=== PATIENT | male | born 1950 | race African-American/Black ===

== ENCOUNTER 2019-11-19 06:51 | Day surgery (SDC) | payer MEDICARE ==
[2019-11-18 12:53] VITALS: BMI 38.0
[~2019-11-19 06:51] MED LIST: Prevnar 13-Val Conj/PF 0.5 ML SYRINGE IM ONE
--- NOTE | 2019-11-19 08:43 | RAD ---
RADIOGRAPH LUMBAR SPINE 3 VIEWS: DATE: 11/19/2019 HISTORY: 69-year-old male with lumbar radiculopathy and low back pain. COMPARISON: 01/19/2011 TECHNIQUE: Lateral standing views in flexion, extension, and neutral. FINDINGS: Along with the AP associate director qa radiograph obtained today for the myelogram, there is demonstration of 5 lumb ar-type vertebrae. No high-grade scoliosis. Chronic minimal anterior wedging of T12 and L1, are unchanged. L1-2: Disc space maintained. L2-3: Interval development of mild disc space narrowing. L3-4: New finding of slight retrolisthesis of L3 on L4, with mild disc space narrowing there. L4-5: Again noted is the grade 1 anterolisthesis of L4 on L5 due to facet DJD. This becomes worse dur ing flexion. Mild to moderate disc space narrowing. L5-S1: No high-grade disc space narrowing.. IMPRESSION: 1 stable grade 1 spondylolisthesis due to facet osteoarthrosis, at L4-5.
--- NOTE | 2019-11-19 08:44 | RAD ---
3 LATERAL PROJECTIONS OF THE CERVICAL SPINE IN NEUTRAL, EXTENSION AND FLEXION POSITIONIN11/19/2019 12:00 AM CLINICAL HISTORY: Cervical radiculopathy COMPARISON: CT cervical spine dated November 19, 2010 Bones: There is stable ankylosis of the C4-5 intervertebral level. There is a stable ACDF spanning C3 -C7. The very distal aspect of the ACDF plate is not well seen. Cervical thoracic junction is not well seen. Intervertebral disc spaces and facet complexes: Advanced disc degenerative disease at C2-C3 is simila r appearing. Spinal alignment: No abnormal translational motion is demonstrated. The cervical thoracic junction wa s not well seen. There is mild anterior translation of C7 on T1 on the comparison exam. Prevertebral soft tissues: Normal. Lateral masses: Not interrogated Lung apices: Not seen Additional findings: None. IMPRESSION: Stable postoperative cervical spine with advanced disc degenerative disease at C2-C3. No abnormal tra nslational motion identified. Limitations of the exam as above.
--- NOTE | 2019-11-19 10:53 | CT ---
CT cervical spine with contrast: (CT cervical myelogram) 11/19/2019 HISTORY: 69-year-old male with cervical radiculopathy. FINDINGS: Spinal canal is diffusely small in caliber on a congenital basis due to developmentally short pedicle s. This is exacerbated by hypertrophic degenerative changes and ossification of posterior longitudinal ligament (much of which have been surgically resected). Anterior metallic plate from C3 through C7. The plate is anchored by screws to the vertebral bodies at C3, C5, C6, and C7. No screws at C4. Successful ankylosis of the C4 and C5 vertebral bodies via bone graft, across the disc space. Also successful ankylosis between the C5 and C6 vertebral bodies, and between the C6 and C7 vertebral bodies C1-2: No high-grade central stenosis. No high-grade DJD at atlantooccipital joints. Mild to moderate hypertrophic degenerative changes at atlantoodontoid junction. C2-3: Suboptimal intrathecal contrast concentration. Disc-osteophyte complex exacerbates the developm entally small caliber spinal canal, probably indenting the spinal cord, causing moderate central spinal canal stenosis. Moderate size bilateral uncinate process osteophytes. Severe right facet DJD. Mild to moderate left facet DJD. Moderate bilateral neural foraminal stenosis. C3-4: Large central and left-central calcified posterior longitudinal ligament chronically indents le ft ventral portion of spinal cord, exacerbating the developmentally small caliber spinal canal, causing moderate to severe central spinal canal stenosis. Moderate size bilateral uncinate process os teophytes. Moderate-severe right facet DJD. Moderate left facet DJD. Moderate right neural foraminal stenosis. Severe left neural foraminal stenosis. C4-5: Moderate bilateral uncinate process osteophytes. Ankylosis of bilateral facet joints. Central a nd left-central osteophytes protruding into anterior aspect of spinal canal, exacerbating the developmentally small caliber spinal canal. Insufficient intrathecal contrast in anterior portion of spinal canal. Moderate-severe central spinal canal stenosis. Moderate-severe right neural foraminal stenosis. Moderate left neural foraminal stenosis. C5-6: Central disc-osteophyte complex abuts ventral surface of spinal cord. Moderate central spinal c anal stenosis. Moderate size bilateral uncinate process osteophytes. No high-grade right facet DJD. Mild to moderate left facet DJD. Moderate bilateral neural foraminal stenosis. C6-C7: No high-grade facet DJD. Bilateral moderate uncinate process osteophytes, left greater than ri ght. Mild to moderate right neural foraminal stenosis. Severe left neural foraminal stenosis. Moderate central spinal canal stenosis. C7-T1: Severe bilateral facet DJD causes grade 1 anterolisthesis of C7 on T1. Severe bilateral neural foraminal stenosis. Severe central spinal canal stenosis. IMPRESSION: 1.) Status post anterior cervical discectomy and fusion from C3 through C7. 2) developmentally small caliber spinal canal exacerbated by cervical spondylosis 3) at C3 and C3-4, there is calcified or ossified posterior longitudinal ligament exacerbating the de velopmentally small caliber spinal canal. 4) grade 1 spondylolisthesis at C7-T1 due to severe bilateral facet osteoarthrosis, with associated s evere bilateral neural foraminal stenosis and severe central spinal canal stenosis. 5) multiple other levels of high-grade central spinal canal stenosis and high-grade neural foraminal stenosis.
--- NOTE | 2019-11-19 11:18 | CT ---
CT lumbar spine with contrast: (CT lumbar myelogram) 11/19/2019 HISTORY: 69-year-old male with low back pain and lumbar radiculopathy FINDINGS: In addition to atherosclerotic calcification of branches of bilateral renal arteries, there are punct ate calcifications in both kidneys that are questionable for nephrolithiasis. Without IV contrast, it is difficult to determine whether some of them are renal calculi or atherosclerotic calcifications . No hydronephrosis. Nonspecific low-attenuation lesions at mid pole parenchyma of left, one of which is a 1.5 cm cyst with density of 13 Hounsfield units. Just lateral to that, there is an ill-def ined slightly smaller low-attenuation lesion with indeterminate, incomplete characterization. 5 lumbar-type vertebrae. Vertebral body heights are maintained. Mild disc space narrowing at several levels. No severe disc space narrowing at any level. T12-L1: Diffuse disc bulge indents ventral aspect of thecal sac. No high-grade central spinal canal s tenosis. Conus medullaris terminates at this level. At least mild bilateral neural foraminal stenosis. L1-2: No central stenosis. At least mild bilateral neural foraminal stenosis. L3-4: Combination of large diffusely partially calcified disc bulge, minimal retrolisthesis of L2 on L3, mild degenerative facet hypertrophy, and mild to moderate ligamentum flavum thickening, results in moderate-severe central spinal canal stenosis and severe central spinal canal stenosis with crowdi ng of cauda equina, resulting in tortuosity of cauda equina superior to this level. High-grade bilateral neural foraminal stenosis, probably severe. L3-4: Prominent diffuse disc bulge. Superimposed right-central disc herniation deeply indents the rig ht side of the thecal sac, displacing right cauda equina nerve roots. Moderate ligamentum flavum thickening. Moderate to severe bilateral facet DJD. Severe bilateral neural foraminal stenosis. Sever e central spinal canal stenosis. L4-5: Severe bilateral facet DJD consistent with vacuum joint phenomenon) causes grade 1 anterolisthe sis of L4 on L5. Diffuse partially calcified disc bulge. Severe bilateral neural foraminal stenosis. Severe central spinal canal stenosis. L5-S1: Retrolisthesis of L5 on S1 plus diffuse disc bulge. Moderate to severe bilateral neural forami nal stenosis. No high-grade central spinal canal stenosis. There are are degenerative changes at the bilateral SI joints, with vacuum joint phenomenon. Anterior sclerosis and osteophytosis, including bridging osteophytes that fuses the S1 sacral alae with the iliac bones. IMPRESSION: 1.) Lumbar spondylosis with multilevel high-grade central spinal canal stenosis and multilevel high-g rade neural foraminal stenosis. 2) at L2-3, severe central spinal canal stenosis mostly due to large disc bulge, compressing cauda eq uina. 3) at L3-4 severe central spinal canal stenosis due to prominent diffuse disc bulge. 4) at L3-4, Additional superimposed right-central disc herniation impinging on right-sided nerve root s. 5) severe central spinal canal stenosis at L4-5 due to combination of grade 1 spondylolisthesis due t o severe bilateral facet osteoarthrosis, plus disc bulge 6) of the multilevel high-grade neural foraminal stenosis, the worst levels are L4-5 and L3-4. 7) osteoarthrosis and partial ankylosis of bilateral sacroiliac joints. 8) in addition to atherosclerotic calcification of branches of right lateral renal arteries, there is questionable nephrolithiasis. 9) in addition to a small left renal cyst, there is an adjacent indeterminate left renal lesion for w [facility] multiphase CT abdomen with and without contrast (renal mass protocol) should be considered.
--- NOTE | 2019-11-19 11:36 | CT ---
CT-GUIDED MYELOGRAM LUMBAR CT-GUIDED MYELOGRAM CERVICAL: DATE: 11/19/2019 HISTORY: 69-year-old male with cervical and lumbar radiculopathy. TECHNIQUE: Signed informed consent obtained. Tongue Lining Stitcher radiographic images of lumbar spine and cervical spine obtained. Patient these images, decision was made to perform the myelogram under CT guidance. Patient placed prone on CT table. Skin of lower back prepared and draped in usual sterile fashion. 25-gauge needle used to apply buffer ed lidocaine superficially and deeply. Level selected:L5-S1. Approach:right paramedian interlaminar. A long, 5 inch 22-gauge spinal needle advanced into spinal canal under step CT guidance. Upon return of clear CSF, 12 mL CSF was removed and discarded. 10 mL Isovue [id number] media was injected into the intrathecal space. Spinal needle was removed. Patient was placed on gravity, and was tilted Trendelenburg to allow contrast to flow into the cervic al spine. Using placed back on CT table for CT scans of C-spine and L-spine. No complications. IMPRESSION: 1) technically successful CT-guided lumbar and cervical myelogram 2) See separate reports of subsequent CT lumbar myelogram and CT cervical myelogram.
[2019-11-19 11:52] VITALS: BP 159/75; TEMP 97.9
--- NOTE | 2019-11-19 11:53 | RAD ---
Radiograph cervical spine one view limited Radiograph lumbar spine one view limited: 11/19/2019 HISTORY: 69-year-old male with cervical radiculopathy and lumbar radiculopathy presents for cervical and lumba r myelogram. These single AP views of the C-spine and L-spine were obtained as capacitor tester views for the myelogram. Based on the lumbar spine AP view, plus the lateral flexion and extension views obtained today, the d ecision was made to perform the lumbar puncture and myelogram under CT guidance rather than fluoroscopic guidance, due to the progression of lumbar spondylosis since prior lumbar spine imaging of 01/19/2011, and the body habitus. FINDINGS: AP view of C-spine demonstrates ACDF hardware from C3 through C7. AP view of lumbar spine demonstrate 5 lumbar-type vertebrae. Lower level facet DJD and degenerative d isc disease. IMPRESSION: 1. Cervical spondylosis. 2. Status post ACDF throughout most levels of the cervical spine. 3. Lumbar spondylosis.
== END 2019-11-19 11:30 | disposition home or self-care (01) ==
LOC: RAD 06:51
PROVIDERS: ATTEND Neurological Surgery
PROC: B01B1ZZ Fluoroscopy of Spinal Cord using Low Osmolar Contrast (ICD-10-PCS; principal; 2019-11-19)
DX: M47.22 Other spondylosis with radiculopathy, cervical region (principal); M50.11 Cervical disc disorder with radiculopathy, high cervical region; M47.26 Other spondylosis with radiculopathy, lumbar region; M51.16 Intervertebral disc disorders with radiculopathy, lumbar region; M48.02 Spinal stenosis, cervical region; M48.061 Spinal stenosis, lumbar region without neurogenic claudication; M47.813 Spondylosis without myelopathy or radiculopathy, cervicothoracic region; M43.13 Spondylolisthesis, cervicothoracic region; M48.03 Spinal stenosis, cervicothoracic region; M43.16 Spondylolisthesis, lumbar region; M46.1 Sacroiliitis, not elsewhere classified; I70.1 Atherosclerosis of renal artery; N28.1 Cyst of kidney, acquired; I25.10 Atherosclerotic heart disease of native coronary artery without angina pectoris; I10 Essential (primary) hypertension; N40.0 Benign prostatic hyperplasia without lower urinary tract symptoms; F17.210 Nicotine dependence, cigarettes, uncomplicated; I25.2 Old myocardial infarction; E11.42 Type 2 diabetes mellitus with diabetic polyneuropathy; I25.5 Ischemic cardiomyopathy; Z79.82 Long term (current) use of aspirin; Z79.84 Long term (current) use of oral hypoglycemic drugs; Z79.899 Other long term (current) drug therapy; Z95.1 Presence of aortocoronary bypass graft; Z95.5 Presence of coronary angioplasty implant and graft; Z98.1 Arthrodesis status
CPT/HCPCS: 72020; 72040; 72100; 72126; 72132; 77002

== ENCOUNTER 2020-03-28 06:59 | Inpatient (IN) | payer MEDICARE ==
[2020-03-28] MEDS ORDERED: Nitroglycerin 0.4 MG TAB 1 EACH ONE (07:05)
[2020-03-28 07:15] LABS: Actual Bicarbonate (HCO3a) 23.2 mEq/L (22-28); Analyzer IN Cardio ER; Base Excess (BEa) -2.8 mEq/L (-2.0 to +3.0); CO2 Tension 45.1 mmHg (35.0-45.0); Calcium, Ionized (arterial) 1.15 mmol/L (1.12-1.30); Carboxyhemoglobin (COHb) 0.3 gm% (0.0-3.0); Hemoglobin (Hb) 10.9 g/dL (14.0-18.0); O2 Tension (PaO2), arterial 104.4 mmHg (> 80.0); Potassium - ABG Lab 4.54 mmol/L (3.70-5.30); Puncture Site RRA; pH, Arterial 7.33 (7.35-7.45)
[2020-03-28 07:16] LABS: ALV-art Gradient 338.325 mmHg (0-20)
[2020-03-28] MEDS ORDERED: Nitroglycerin 50 MG/250 ML BOT 250 ML ONE (07:19)
[2020-03-28] MEDS ORDERED: Aspirin Chewable 81 MG TAB ONE (07:35)
[2020-03-28] MEDS ORDERED: Fentanyl 100 MCG/2 ML VIAL ONE (07:35)
[2020-03-28 07:43] LABS: INR-International Normal Ratio 1.2; PTT 39.3 sec (22.9-36.1)
--- NOTE | 2020-03-28 07:45 | RAD ---
EXAM: Chest one view: HISTORY: Dyspnea following recent back surgery COMPARISON: 03/27/2020 FINDINGS: Stable to possibly very slightly worsening bilateral vascular congestion. Heart size: Within normal limits. Lungs: No focal confluent pneumonia. No significant pleural effusion. IMPRESSION: Stable to possibly slightly worsening bilateral vascular congestion and increased markings in the per ihilar regions. Continued short-term follow-up.
[2020-03-28] MEDS ORDERED: Furosemide 40 MG/4 ML VIAL ONE (07:47)
[2020-03-28 07:56] LABS: ALT (SGPT) 54 U/L (8-55); AST (SGOT) 77 U/L (5-34); Albumin 3.6 g/dL (3.4-4.8); Alkaline Phosphatase 83 U/L (40-110); Anion Gap 20 mmol/L (10-20); BUN (Urea Nitrogen) 26 mg/dL (8.4-25.7); Bilirubin, Total 0.7 mg/dL (0.2-1.2); Calc. Creatinine Clearance 0 mL/min (70-130); Calcium 8.8 mg/dL (7.8-10.44); Carbon Dioxide 19 mmol/L (23-31); Chloride 105 mmol/L (98-107); Globulin 3.7 g/dL (2.4-3.5); Glucose 213 mg/dL (80-115); Potassium 4.7 mmol/L (3.5-5.1); Protein, Total 7.3 g/dL (5.8-8.1); Sodium 139 mmol/L (136-145)
[2020-03-28 07:58] LABS: D-Dimer Test 3.83 *mcg/mL (0.27-0.43)
[2020-03-28 08:35] LABS: CKMB 2.3 ng/mL (0-6.6)
[2020-03-28 09:34] LABS: #Eosinphils 0.1 thou/uL (0.0-0.7); #Lymphocytes 0.8 thou/uL (1.20-3.40); #Neutrophils 9.1 thou/uL (1.40-6.50); %Basophils 0.3 % (0.0-1.0); %Eosinophils 0.7 % (0.0-10.0); %Lymphocytes 7.5 % (21.0-51.0); %Monocytes 8.8 % (0.0-10.0); %Neutrophils 82.6 % (42.0-75.0); Hemoglobin 9.9 g/dL (14.0-18.0); Mean Corpuscular HGB CONC 32.5 g/dL (32.0-36.0); Mean Corpuscular Hemoglobin 30.1 pg (27.0-31.0); Mean Corpuscular Volume 92.6 fL (78.0-98.0); Mean Platelet Volume 8.8 fL (7.4-10.4); Platelet Count 182 thou/uL (130-400); RBC Distribution Width 13.8 % (11.5-14.5); White Blood Cell (WBC) Count 11.1 thou/uL (4.8-10.8)
[2020-03-28 09:35] LABS: SARS-CoV-2 NAA Rapid Test Not Detected (NotDetected)
--- NOTE | 2020-03-28 10:10 | CT ---
EXAM: CT angiogram of the chest including 3-D rendering: HISTORY: Dyspnea COMPARISON: None FINDINGS: Contrast bolus is borderline. Smaller caliber pulmonary arteries particularly in the lower lobes are somewhat less than optimally i zoe. No evidence for aortic aneurysm or dissection. No convincing CT evidence for acute pulmonary embolism. There are some confluent alveolar parenchymal changes in the left lower lobe as well as diffuse alveo lar and groundglass opacity changes in the left upper lobe and lingula worrisome for developing pneumonia or possibly aspiration. No evidence for mediastinal mass or adenopathy. Minimal bilateral pleural thickening/small left pleural effusion. Bilateral renal vascular calcifications. IMPRESSION: No convincing CT evidence for acute pulmonary embolism. Evidence for probable developing left lower lobe and left upper lobe pneumonia or possible aspiration with minimal pleural reaction changes Continued short-term follow-up.
[2020-03-28] MEDS ORDERED: Azithromycin 500 MG VIAL ONE (10:24)
[2020-03-28] MEDS ORDERED: Morphine 2 MG/ML VIAL ONE (10:24)
[2020-03-28] MEDS ORDERED: Nitroglycerin 2% Ointment 1 INCH/1 GM Packet ONE (10:24)
[2020-03-28] MEDS ORDERED: Cefepime 2 GM VIAL ONE ×2 (10:24→20:24)
--- NOTE | 2020-03-28 10:26 | PDOC.HHP ---
Hospitalist HPI - History of Present Illness Shortness of breath History of Present Illness: 69-year-old male who has past medical history of hypertension, diabetes type 2,? History of congestive heart failure who presented to emergency room with a complaint of sudden onset of shortness of breath started this morning, 911 was called for acute onset of shortness of breath and paramedics saw him at that t kesha patient was in respiratory distress required immediate BiPAP, as per fishing vessel mate patient was saturating 60% at his rehab facility, initially patient was given nonrebreather and his saturation improved to 90% and subsequently patient was given BiPAP, patient felt significantly better when he arrived to emergency room, he was also hypertensive and required an nitro drip and his blood pressure improved, he was given Lasix and after that he had significant improvement, Patient underwent a lumbar laminectomy few days ago on March 24 at [facility] and subsequently patient was transferred to rehab facility, patient reports that he has history of congestive heart failure with ischemic card iomyopathy and he is following cardiology at [facility]. He also has pacemaker/defibrillator. In the emergency room patient had routine laboratory test done which showed leukocytosis with a left shift, he is a D-dimer was elevated and thus a CT angiography was done which showed no evidence of pulmonary embolism but there was a developing left lower lobe and left upper lobe pneumonia, his COVID-19 test came back negative, chest x-ray showed pulmonary vascular congestion, his BNP was elevated and his troponin was also elevated. Initially in the emergency room patient was given nitro drip and he was continue with BiPAP but patient was doing much better so we try to wean off nitro drip a nd BiPAP and subsequently we have downgraded him from ICU to telemetry. CT angiography showed pneumonia so we decided to do blood culture and empiric antibiotic therapy with cefepime and azithromycin. ED Course: Patient is given cefepime, azithromycin, Lasix, nitroglycerin drip initially and changed to nitro patch, patient was given BiPAP and subsequently weaned off Hospitalist ROS - Review of Systems Constitutional: reports: weakness, malaise. denies: fever, chills, sweats, other Eyes: denies: pain, vision change, conjunctivae inflammation, eyelid inflammation, redness, other ENT: denies: ear pain, ear discharge, nose pain, nose discharge, nose c ongestion, mouth pain, mouth swelling, throat pain, throat swelling, other Respiratory: reports: cough, shortness of breath, SOB with excertion. denies: dry, hemoptysis, pleuritic pain, sputum, wheezing, other Cardiovascular: reports: orthopnea. denies: chest pain, palpitations, paroxysmal noc. dyspnea, edema, light headedness, other Gastrointestinal: denies: nausea, vomiting, abdominal pain, diarrhea, constipation, melena, hematochezia, other Genitourinary: denies: dysuria, frequency, incontinence, hematuria, retention, other Musculoskeletal: reports: back pain. denies: neck pain, shoulder pain, arm pain, hand pain, leg pain, foot pain, other Skin: denies: rash, lesions, sally, bruising, other Neurological: denies: weakness, numbness, incoordination, change in speech, confusion, seizures, other - Medication Medications: Medication Instructions Recorded Confirmed Type Acetaminophen With Codeine 1 tablet PO QID 11/18/19 11/19/19 History [Tylenol with Codeine #3] Amiodarone [Cordarone] 200 mg PO BID 11/18/19 11/19/19 History Amlodipine [Norvasc] 10 mg PO HS 11/18/19 11/19/19 History Aspirin [Ecotrin] 81 mg PO DAILY 11/18/19 11/19/19 History Atorvastatin Calcium [Lipitor] 10 mg PO HS 11/18/19 11/19/19 History Carvedilol [Coreg] 25 mg PO BID 11/18/19 11/19/19 History Ferrous Sulfate 325 mg PO BID 11/18/19 11/19/19 History Fluticasone Propionate [Flonase 1 spray EA NARE BID 11/18/19 11/19/19 History Nasal [place]] Gabapentin [Neurontin] 300 mg PO QID 11/18/19 11/19/19 History Lovastatin [Altoprev] 20 mg PO DAILY 11/18/19 11/19/19 History Multivitamin [Multi-Vitamin Daily] 1 tablet PO DAILY 11/18/19 11/19/19 History Naproxen [Naprosyn] 500 mg PO BID PRN 11/18/19 11/19/19 History cloNIDine HCl 0.1 mg PO BID 11/18/19 11/19/19 History metFORMIN [Glucophage] 500 mg PO BID-WM 11/18/19 11/19/19 History Allergies No Known Allergies Allergy (Verified 11/19/19 11:54) CODE STATUS full code Hospitalist History - Past Medical History Other Medical History: Past medical history Chronic pain disorder Diabetes type 2 Hypertension Dyslipidemia CHF Chronic low back pain Past surgical history L3-L5 laminectomy Pacemaker/defibrillator placement Past psychiatric history reviewed and negative Social history no smoking no alcohol no drugs Family history nothing significant - Past Surgical History Other Surgical History: Laminectomy Pacemaker/defibrillator placement - Family History Other Family History: No strong family history of premature coronary artery disease or stroke or cancer - Social History Other Social History: No history of smoking alcohol or illicit drug abuse - Exam General Appearance: NAD, ill appearing Eye: PERRL, anicteric sclera ENT: normocephalic atraumatic, no oropharyngeal lesions Neck: symmetric, no thyromegaly Heart: RRR, no murmur, no gallops, no rubs Respiratory: no tachypnea, wheezes Respiratory - other findings: Bibasilar rales Gastrointestinal: soft, non-tender, non-distended, normal bowel sounds, no palpable masses Gastrointestinal - other findings: Obesity Extremities: no clubbing, 1+ LE edema Skin: normal turgor, no lesions Neurological: no focal deficits Musculoskeletal: normal tone, normal strength Psychiatric: normal affect, normal behavior Hospitalist Results - Labs Result Diagrams: 03/28/20 07:25 03/28/20 07:25 Lab results: WBC 11.1 thou/uL (4.8-10.8) H 03/28/20 07:25 Hgb 9.9 g/dL (14.0-18.0) L 03/28/20 07:25 Hct 30.6 % (42.0-52.0) L 03/28/20 07:25 MCV 92.6 fL (78.0-98.0) 03/28/20 07:25 Plt Count 182 thou/uL (130-400) 03/28/20 07:25 Neutrophils % 82.6 % (42.0-75.0) H 03/28/20 07:25 ABG pH 7.33 (7.35-7.45) L 03/28/20 07:11 ABG pCO2 45.1 mmHg (35.0-45.0) H 03/28/20 07:11 ABG pO2 104.4 mmHg (> 80.0) H 03/28/20 07:11 Sodium 139 mmol/L (136-145) 03/28/20 07:25 Potassium 4.7 mmol/L (3.5-5.1) 03/28/20 07:25 Chloride 105 mmol/L (98-107) 03/28/20 07:25 Carbon Dioxide 19 mmol/L (23-31) L 03/28/20 07:25 BUN 26 mg/dL (8.4-25.7) H 03/28/20 07:25 Creatinine 1.16 mg/dL (0.7-1.3) 03/28/20 07:25 Glucose 213 mg/dL (80-115) H 03/28/20 07:25 Lactic Acid 1.5 mmol/L (0.5-2.2) 03/28/20 07:30 Calcium 8.8 mg/dL (7.8-10.44) 03/28/20 07:25 Total Bilirubin 0.7 mg/dL (0.2-1.2) 03/28/20 07:25 AST 77 U/L (5-34) H 03/28/20 07:25 ALT 54 U/L (8-55) 03/28/20 07:25 Alkaline Phosphatase 83 U/L (40-110) 03/28/20 07:25 CK-MB (CK-2) 2.3 ng/mL (0-6.6) 03/28/20 07:25 Troponin I 0.047 ng/mL (< 0.028) H 03/28/20 07:25 B-Natriuretic Peptide 622.0 pg/mL (0-100) H 03/28/20 07:25 Serum Total Protein 7.3 g/dL (5.8-8.1) 03/28/20 07:25 Albumin 3.6 g/dL (3.4-4.8) 03/28/20 07:25 - EKG Interpretation EKG: EKG showing pacemaker rhythm, - Radiology Interpretation CT scan - chest Status: image reviewed by me Additional Comment: CT angio chest showed no evidence of pulmonary embolism, developing left lower lobe and left upper lobe pneumonia, Chest x-ray Status: image reviewed by me Additional Comment: Bilateral pulmonary vascular congestion Hospitalist H&P A/P - Problem (1) Acute respiratory failure with hypoxemia Code(s): J96.01 - ACUTE RESPIRATORY FAILURE WITH HYPOXIA Status: Acute Assessment and Plan: Initially patient was hypoxic, patient required BiPAP and nonrebreather and now we are trying to wean off BiPAP, will continue with oxygen to keep saturation above 92%, most likely CHF and pneumonia contributing to his hypoxic respiratory failure, will closely monitor while in hospital we will treat underlying CHF and pneumonia (2) Acute CHF Code(s): I50.9 - HEART FAILURE, UNSPECIFIED Status: Acute Qualifiers: Heart failure type: systolic Qualified Code(s): I50.21 - Acute systolic (congestive) heart failure Assessment and Plan: Patient has history of CHF, most likely ischemic, patient has AICD/defibrillator, will continue Lasix 40 mg IV twice daily, fluid restriction, will monitor electrolytes and renal function, replace electrolyte accordingly, will obtain echocardiography to assess EF and other structural abnormality, based on hemodynamics we will continue with the goal-directed therapy, will resume his selected blood pressure medication, (3) Pneumonia Code(s): J18.9 - PNEUMONIA, UNSPECIFIED ORGANISM Status: Acute Qualifiers: Pneumonia type: aspiration pneumonia Laterality: left Lung location: upper lobe of lung Assessment and Plan: Given recent hospitalization and rehab admission, will treat as a healthcare associated pneumonia with cefepime and azithromycin, blood culture sent from emergency room, follow-up on culture result, DuoNeb therapy as needed basis, his COVID-19 is negative (4) Diabetes type 2, controlled Code(s): E11.9 - TYPE 2 DIABETES MELLITUS WITHOUT COMPLICATIONS Status: Chronic Qualifiers: Diabetes mellitus roasterman insulin use: with penitentiary use Assessment and Plan: Start insulin as per sliding scale protocol (5) Hypertension Code(s): I10 - ESSENTIAL (PRIMARY) HYPERTENSION Status: Chronic Qualifiers: Hypertension type: essential hypertension Qualified Code(s): I10 - Essential (primary) hypertension Assessment and Plan: Continue nitro patch and selected blood pressure medication from home (6) Dyslipidemia Code(s): E78.5 - HYPERLIPIDEMIA, UNSPECIFIED Status: Chronic (7) Gastroesophageal reflux disease Code(s): K21.9 - GASTRO-ESOPHAGEAL REFLUX DISEASE WITHOUT ESOPHAGITIS Status: Chronic Qualifiers: Esophagitis presence: without esophagitis Qualified Code(s): K21.9 - Gastro-esophageal reflux disease without esophagitis (8) Obesity (BMI 30-39.9) Code(s): E66.9 - OBESITY, UNSPECIFIED Status: Chronic (9) Chronic low back pain Code(s): M54.5 - LOW BACK PAIN; G89.29 - OTHER CHRONIC PAIN Status: Chronic Assessment and Plan: She had recently a lumbar laminectomy, pain control with morphine as needed basis (10) Type 2 myocardial infarction Code(s): I21.A1 - MYOCARDIAL INFARCTION TYPE 2 Status: Acute Assessment and Plan: Due to demand ischemia from CHF and pneumonia, will do serial cardiac enzymes x3, will get consult from cardiology (11) Anemia of chronic disease Code(s): D63.8 - ANEMIA IN OTHER CHRONIC DISEASES CLASSIFIED ELSEWHERE Status: Chronic - Plan Plan: Admission to telemetry Wean off BiPAP Discontinue nitro drip Start Nitropatch Add cefepime and azithromycin Continue Lasix We will repeat labs tomorrow PT OT evaluation DVT prophylaxis Lovenox 40 mg subcu daily GI prophylaxis Protonix 40 mg p.o. daily CODE STATUS patient is full code Disposition plan based on clinical course.
[2020-03-28] MEDS ORDERED: Zolpidem Tartrate 5 MG TAB PO PRN (10:34)
[2020-03-28] MEDS ORDERED: Dextrose 5% in Water 1,000 ML IV PRN (10:34)
[2020-03-28] MEDS ORDERED: Calcium Carbonate 500 MG ChewTAB PO PRN (10:34)
[2020-03-28] MEDS ORDERED: Cepastat Lozenges 1 LOZ PO PRN (10:34)
[2020-03-28] MEDS ORDERED: Acetaminophen 325 MG TAB PO PRN (10:34)
[2020-03-28] MEDS ORDERED: Diabetic Tussin 200 MG/10 ML UDCUP PO PRN (10:34)
[2020-03-28] MEDS ORDERED: Loratadine 10 MG TAB PO PRN (10:34)
[2020-03-28] MEDS ORDERED: Sodium Chloride 0.65% Nasal 44 ML BOT EA NARE PRN (10:34)
[2020-03-28] MEDS ORDERED: Dextrose 50% Abboject 50 ML SYRINGE SLOW IVP PRN (10:34)
[2020-03-28] MEDS ORDERED: HumaLOG 300 UNITS/3 ML VIAL SC PRN ×2 (10:34)
[2020-03-28] MEDS ORDERED: Metoclopramide HCl 10 MG/2 ML VIAL IVP PRN (10:34)
[2020-03-28] MEDS ORDERED: Loperamide HCl 2 MG CAP PO PRN (10:34)
[2020-03-28] MEDS ORDERED: hydrALAZINE 20 MG/ML VIAL SLOW IVP PRN (10:34)
[2020-03-28] MEDS ORDERED: Bisacodyl 10 MG SUPP PR PRN (10:34)
[2020-03-28 11:09] LABS: Troponin I 2.055 ng/mL (< 0.028)
[2020-03-28] MEDS ORDERED: Iopamidol-370 76% 500 ML 1 ML ONE (14:23)
[2020-03-28 14:43] LABS: Troponin I 2.511 ng/mL (< 0.028)
[2020-03-28] MEDS: Furosemide 40 MG/4 ML VIAL SLOW IVP SCH (16:58)
[2020-03-28] MEDS: Azithromycin 500 MG in Sodium Chloride 0.9% 250 ML 250 ML IVPB SCH (16:58)
[2020-03-28] MEDS: HYDROcodone/Acetaminophen 5/325 mg Tablet PO PRN (19:51)
[2020-03-28] MEDS ORDERED: HYDROcodone/Acetaminophen 5/325 mg Tablet ONE (19:52)
[2020-03-28] MEDS ORDERED: Carvedilol 3.125 MG TAB PO SCH (21:00)
[2020-03-28] MEDS ORDERED: Enoxaparin Sodium 40 MG/0.4 ML SYRINGE ONE (21:28)
[2020-03-28] MEDS: Cefepime 2 GM in Sodium Chloride 0.9% 100 ML IVPB SCH (21:36)
[2020-03-28] MEDS: Enoxaparin Sodium 40 MG/0.4 ML SYRINGE SC SCH (21:36)
[2020-03-28 22:51] VITALS: BMI 37.0
[2020-03-29] MEDS: HYDROcodone/Acetaminophen 5/325 mg Tablet PO PRN ×4 (00:28→17:23)
[2020-03-29 02:08] LABS: Bacteria/HPF None Seen HPF (None Seen); Bilirubin Negative (Negative); Blood, Urine Negative (Negative); Clarity Clear (Clear); Glucose, Urine (Dipstick) Normal (Negative); Ketone, Urine Negative (Negative); Leukocyte Negative Leu/uL (Negative); Nitrite Negative (Negative); Protein, Urine (Dipstick) 20 mg/dL (Neg-Trace); RBC/HPF 0-3 HPF (0-3); Specific Gravity, Urine 1.022 (1.002-1.036); Squamous Epithelial None Seen HPF (0-3); Urobilinogen Normal mg/dL (Less than 2); WBC/HPF 0-3 HPF (0-3); pH, Urine 6.5 (5.0-9.0)
[2020-03-29 05:22] LABS: ALT (SGPT) 62 U/L (8-55); AST (SGOT) 71 U/L (5-34); Albumin 3.4 g/dL (3.4-4.8); Alkaline Phosphatase 69 U/L (40-110); Anion Gap 16 mmol/L (10-20); BUN (Urea Nitrogen) 25 mg/dL (8.4-25.7); Bilirubin, Total 0.5 mg/dL (0.2-1.2); Calc. Creatinine Clearance 119 mL/min (70-130); Calcium 8.8 mg/dL (7.8-10.44); Carbon Dioxide 24 mmol/L (23-31); Chloride 105 mmol/L (98-107); Globulin 3.5 g/dL (2.4-3.5); Glucose 103 mg/dL (80-115); Magnesium 2.1 mg/dL (1.6-2.6); Potassium 3.7 mmol/L (3.5-5.1); Protein, Total 6.9 g/dL (5.8-8.1); Sodium 141 mmol/L (136-145); Uric Acid 6.2 mg/dL (3.5-7.2)
[2020-03-29] MEDS: traMADol HCl 50 MG TAB PO PRN ×2 (05:38→21:02)
[2020-03-29] MEDS: Senokot S 8.6-50 MG TAB PO PRN ×2 (05:39→20:56)
[2020-03-29] MEDS: Furosemide 40 MG/4 ML VIAL SLOW IVP SCH ×2 (05:40→13:44)
[2020-03-29 05:47] LABS: Hemoglobin 9.5 g/dL (14.0-18.0); Mean Corpuscular HGB CONC 32.3 g/dL (32.0-36.0); Mean Corpuscular Volume 93.1 fL (78.0-98.0); Platelet Count 196 thou/uL (130-400); RBC Distribution Width 13.7 % (11.5-14.5); Red Blood Cell (RBC) Count 3.15 mill/uL (4.70-6.10); White Blood Cell (WBC) Count 8.4 thou/uL (4.8-10.8)
[2020-03-29 05:49] LABS: Band 3 % (5-11); Lymphocytes 22 % (21-51); MDiff Complete? YES; Monocytes 14 % (0-10); Neutrophil 61 % (42-75)
[2020-03-29] MEDS ORDERED: Enoxaparin Sodium 40 MG/0.4 ML SYRINGE SC SCH (09:00)
[2020-03-29] MEDS ORDERED: Lisinopril 2.5 MG TAB PO SCH (09:00)
[2020-03-29] MEDS: Carvedilol 25 MG TAB PO SCH ×2 (10:09→20:57)
[2020-03-29] MEDS: Aspirin Chewable 81 MG TAB PO SCH (10:09)
[2020-03-29] MEDS: Enoxaparin Sodium 40 MG/0.4 ML SYRINGE SC SCH ×2 (10:10→20:55)
[2020-03-29] MEDS: Cefepime 2 GM in Sodium Chloride 0.9% 100 ML IVPB SCH ×2 (10:11→20:53)
[2020-03-29] MEDS: Azithromycin 500 MG in Sodium Chloride 0.9% 250 ML 250 ML IVPB SCH (11:19)
[2020-03-29] MEDS ORDERED: Simethicone Chewable 80 MG TAB PO PRN (11:42)
--- NOTE | 2020-03-29 11:42 | PDOC.HOSPP ---
- Subjective Encounter Date: 03/29/20 Encounter Time: 07:10 Subjective: Patient is doing better, no chest pain, no fever, no shortness of breath, - Objective Vital Signs & Weight: Vital Signs (12 hours) Temp Pulse Resp BP Pulse Ox 03/29/20 10:43 97.6 F 65 20 168/67 H 98 03/29/20 07:23 98.3 F 60 16 154/67 H 97 03/29/20 03:35 98.4 F 60 15 137/86 97 03/29/20 00:28 98.6 F 65 16 161/70 H 96 Weight Weight 243 lb 14.4 oz I&O: 03/28/20 03/29/20 03/30/20 06:59 06:59 06:59 Intake Total 600 Output Total 1350 Balance -750 Result Diagrams: 03/29/20 04:20 03/29/20 04:20 Additional Labs: Accuchecks 03/29/20 03/28/20 10:41 22:54 POC Glucose 116 H 110 H Radiology Reviewed by me: Yes EKG Reviewed by me: Yes Hospitalist ROS - Review of Systems Constitutional: reports: weakness. denies: fever, chills, sweats, malaise, other ENT: denies: ear pain, ear discharge, nose pain, nose discharge, nose sheryl estion, mouth pain, mouth swelling, throat pain, throat swelling, other Respiratory: denies: cough, dry, shortness of breath, hemoptysis, SOB with excertion, pleuritic pain, sputum, wheezing, other Cardiovascular: denies: chest pain, palpitations, orthopnea, paroxysmal noc. dyspnea, edema, light headedness, other Gastrointestinal: denies: nausea, vomiting, abdominal pain, diarrhea, constipation, melena, hematochezia, other Genitourinary: denies: dysuria, frequency, incontinence, hematuria, retention, other Musculoskeletal: denies: neck pain, shoulder pain, arm pain, back pain, hand pain, leg pain, foot pain, other - Medication Medications: Active Medications Generic Name Dose Route Start Last Admin Trade Name Freq PRN Reason Stop Dose Admin Hydrocodone Bitart/Acetaminophen 1 tab 03/28/20 10:34 03/29/20 10:10 Hydrocodone/Acetaminophen 5/325 Mg Tablet PO 1 tab Q4H PRN Administration Moderate Pain (4-6) Aspirin 81 mg 03/29/20 09:00 03/29/20 10:09 Aspirin Chewable 81 Mg Tab PO 81 mg DAILY JAMES Administration Carvedilol 25 mg 03/29/20 09:00 03/29/20 10:09 Carvedilol 25 Mg Tab PO 25 mg BID JAMES Administration Enoxaparin Sodium 40 mg 03/28/20 21:00 03/29/20 10:10 Enoxaparin Sodium 40 Mg/0.4 Ml Syringe SC 40 mg 0900,2100 JAMES Administration Furosemide 40 mg 03/28/20 14:00 03/29/20 05:40 Furosemide 40 Mg/4 Ml Vial SLOW IVP 40 mg 0600,1400 JAMES Administration Azithromycin 500 mg/ Sodium 250 mls @ 250 mls/hr 03/28/20 11:00 03/29/20 11:19 Chloride IVPB 250 mls 1100 JAMES Administration Cefepime HCl 2 gm/ Sodium 100 mls @ 200 mls/hr 03/28/20 21:00 03/29/20 10:11 Chloride IVPB 100 mls Q12HR JAMES Administration Lisinopril 2.5 mg 03/29/20 09:00 03/29/20 10:09 Lisinopril 2.5 Mg Tab PO 2.5 mg DAILY JAMES Administration Senna/Docusate Sodium 2 tab 03/28/20 10:34 03/29/20 05:39 Senokot S 8.6-50 Mg Tab PO 2 tab BID PRN Administration Constipation Sodium Chloride 10 ml 03/28/20 21:00 03/29/20 10:11 Flush - Normal Saline 10 Ml Syringe IVF 10 ml Q12HR JAMES Administration Sodium Chloride 10 ml 03/28/20 12:45 03/29/20 05:41 Flush - Normal Saline 10 Ml Syringe IVF 10 ml PRN PRN Administration Saline Flush Tramadol HCl 50 mg 03/28/20 23:56 03/29/20 05:38 Tramadol Hcl 50 Mg Tab PO 50 mg Q4H PRN Administration Pain - Exam General Appearance: NAD, awake alert Eye: PERRL, anicteric sclera ENT: normocephalic atraumatic, no oropharyngeal lesions Neck: supple, symmetric, no JVD, no thyromegaly Heart: RRR, no murmur, no gallops, no rubs Respiratory: no wheezes, no rales, no ronchi Gastrointestinal: soft, non-tender, non-distended, normal bowel sounds Extremities: no clubbing, no edema Skin: normal turgor, no lesions Neurological: no new deficit Musculoskeletal: normal tone, normal strength Psychiatric: normal affect, normal behavior Hosp A/P (1) Acute respiratory failure with hypoxemia Code(s): J96.01 - ACUTE RESPIRATORY FAILURE WITH HYPOXIA Status: Acute (2) Type 2 myocardial infarction Code(s): I21.A1 - MYOCARDIAL INFARCTION TYPE 2 Status: Acute Plan: Due to congestive heart failure and demand ischemia (3) Acute CHF Code(s): I50.9 - HEART FAILURE, UNSPECIFIED Status: Acute Qualifiers: Heart failure type: systolic Qualified Code(s): I50.21 - Acute systolic (congestive) heart failure (4) Pneumonia Code(s): J18.9 - PNEUMONIA, UNSPECIFIED ORGANISM Status: Acute Qualifiers: Pneumonia type: aspiration pneumonia Laterality: left Lung location: upper lobe of lung (5) Diabetes type 2, controlled Code(s): E11.9 - TYPE 2 DIABETES MELLITUS WITHOUT COMPLICATIONS Status: Chronic Qualifiers: Diabetes mellitus senior living insulin use: with oil heaterman use (6) Hypertension Code(s): I10 - ESSENTIAL (PRIMARY) HYPERTENSION Status: Chronic Qualifiers: Hypertension type: essential hypertension Qualified Code(s): I10 - Essential (primary) hypertension (7) Dyslipidemia Code(s): E78.5 - HYPERLIPIDEMIA, UNSPECIFIED Status: Chronic (8) Gastroesophageal reflux disease Code(s): K21.9 - GASTRO-ESOPHAGEAL REFLUX DISEASE WITHOUT ESOPHAGITIS Status: Chronic Qualifiers: Esophagitis presence: without esophagitis Qualified Code(s): K21.9 - Gastro-esophageal reflux disease without esophagitis (9) Obesity (BMI 30-39.9) Code(s): E66.9 - OBESITY, UNSPECIFIED Status: Chronic (10) Chronic low back pain Code(s): M54.5 - LOW BACK PAIN; G89.29 - OTHER CHRONIC PAIN Status: Chronic (11) Anemia of chronic disease Code(s): D63.8 - ANEMIA IN OTHER CHRONIC DISEASES CLASSIFIED ELSEWHERE Status: Chronic - Plan old records reviewed/req, continue antibiotics, respiratory therapy Continue empiric cefepime and azithromycin for healthcare associated pneumonia Culture negative so far Echocardiography pending Cardiology evaluation pending Patient has clinical improvement, Continue PT OT and wean off oxygen as tolerated Medication reviewed and continue provide symptomatic and supportive care We will at this cardiac medication based on his hemodynamics. Tried to reach out patient's but no response on phone.
[2020-03-29] MEDS: Gabapentin 300 MG CAP PO SCH ×2 (13:44→20:57)
[2020-03-29] MEDS: Ferrous Sulfate 325 MG TAB PO SCH (20:56)
[2020-03-29] MEDS: cloNIDine 0.1 MG TAB PO SCH (20:56)
[2020-03-29] MEDS: Amlodipine 10 MG TAB PO SCH (20:57)
[2020-03-29] MEDS: Atorvastatin Calcium 40 MG TAB PO SCH (20:57)
[2020-03-29] MEDS: Amiodarone 200 MG TAB PO SCH (20:58)
[2020-03-29] MEDS ORDERED: Lisinopril 10 MG TAB PO SCH (21:00)
[2020-03-29] MEDS ORDERED: Atorvastatin Calcium 10 MG TAB PO SCH (21:00)
--- NOTE | 2020-03-29 21:16 | CON ---
DATE OF CONSULTATION: HISTORY OF PRESENT ILLNESS: The patient is a 69-year-old gentleman, who presents with increasing dyspnea and fever. The patient has a long history of coronary artery disease. In 2000, he underwent a cardiac catheterization as he was found to have diffuse 3-vessel coronary artery disease. The patient subsequently has had placement of electronic ventricular pacemaker. The patient is followed by Dr. Lauro Castellanos at [facility]. He recently underwent back surgery. Following the procedure, he developed dyspnea and fever. He was admitted for further evaluation. The patient denied having any chest discomfort. PAST MEDICAL HISTORY: 1. Coronary artery disease. 2. Diabetes mellitus. 3. Hypertension. 4. Dyslipidemia. 5. Sleep apnea. 6. Chronic back pain. 7. History of atrial fibrillation. PAST SURGICAL HISTORY: Laminectomy. SOCIAL HISTORY: Nonsmoker. ALLERGIES: HE HAS NO KNOWN DRUG ALLERGIES. REVIEW OF SYSTEMS: Ten-point system noticeable for severe back pain. FAMILY HISTORY: He had no strong family history of coronary artery disease. PHYSICAL EXAMINATION: GENERAL: This is an obese gentleman, who is in mild distress. VITAL SIGNS: Blood pressure 168/67. NECK: No jugular venous distention. LUNGS: Clear to auscultation. HEART: Regular rate and rhythm. Normal S1, S2 with a holosystolic murmur. ABDOMEN: Distended. EXTREMITIES: Showed no edema. VASCULAR: Radial pulses 2+. LABORATORY AND DIAGNOSTIC DATA: Sodium 141, potassium 3.7, chloride 105, bicarbonate 24, BUN 25, creatinine 0.93, glucose 103. Troponin was 2.5 with an MB of 2.3. AST was 71. His CT scan revealed probable left-sided pneumonia. White blood cell count is 8.4, hemoglobin 9.5, hematocrit 29.3. EKG normal sinus rhythm, sinus tachycardia with electronic ventricular pacemaker. Echocardiogram revealed him to have a severe decrease in left ventricular systolic function with estimated ejection fraction of 20% to 25% with severe mitral regurgitation. IMPRESSION AND PLAN: 1. Pneumonia. 2. Elevated troponin level, probably type-2 [place] 3. Diabetes mellitus. 4. Hypertension. 5. Severe cardiomyopathy. 6. History of pacemaker or AICD placement. 7. Dyslipidemia. 8. Severe mitral regurgitation. 9. Status post back surgery. This gentleman was admitted with pneumonia and was found to have an elevated troponin level. The patient was asymptomatic. I expect this is a type-2 NJ. The patient's blood pressure is markedly elevated . The patient's echocardiogram revealed severe decrease in left ventricular systolic function. He will need to be on higher doses of lisinopril. We will try to wean the patient off Norvasc. We will obtain records from [facility]. We will follow this patient with you through his hospitalization. Job ID: [id number] MTDD
[2020-03-30] MEDS: Furosemide 40 MG/4 ML VIAL SLOW IVP SCH ×2 (04:37→14:16)
[2020-03-30] MEDS: HYDROcodone/Acetaminophen 5/325 mg Tablet PO PRN ×3 (04:37→20:50)
[2020-03-30 05:28] LABS: #Basophils 0.1 thou/uL (0.0-0.2); #Eosinphils 0.3 thou/uL (0.0-0.7); #Lymphocytes 1.6 thou/uL (1.20-3.40); #Monocytes 1.1 thou/uL (0.11-0.59); #Neutrophils 4.9 thou/uL (1.40-6.50); %Basophils 0.8 % (0.0-1.0); %Eosinophils 3.2 % (0.0-10.0); %Lymphocytes 19.7 % (21.0-51.0); %Monocytes 14.4 % (0.0-10.0); Mean Corpuscular HGB CONC 32.3 g/dL (32.0-36.0); Mean Platelet Volume 8.8 fL (7.4-10.4); Platelet Count 239 thou/uL (130-400); RBC Distribution Width 13.8 % (11.5-14.5); Red Blood Cell (RBC) Count 3.32 mill/uL (4.70-6.10); White Blood Cell (WBC) Count 7.9 thou/uL (4.8-10.8)
[2020-03-30 05:55] LABS: Anion Gap 15 mmol/L (10-20); BUN (Urea Nitrogen) 28 mg/dL (8.4-25.7); Calc. Creatinine Clearance 106 mL/min (70-130); Calcium 8.8 mg/dL (7.8-10.44); Carbon Dioxide 25 mmol/L (23-31); Chloride 103 mmol/L (98-107); Glucose 111 mg/dL (80-115); Potassium 3.9 mmol/L (3.5-5.1); Sodium 139 mmol/L (136-145)
[2020-03-30] MEDS ORDERED: Lisinopril 10 MG TAB PO SCH (09:00)
[2020-03-30] MEDS: Senokot S 8.6-50 MG TAB PO PRN ×2 (09:08→20:52)
[2020-03-30] MEDS: cloNIDine 0.1 MG TAB PO SCH ×2 (09:09→20:52)
[2020-03-30] MEDS: Ferrous Sulfate 325 MG TAB PO SCH ×2 (09:09→20:53)
[2020-03-30] MEDS: Gabapentin 300 MG CAP PO SCH ×3 (09:09→20:51)
[2020-03-30] MEDS: Polyethylene Glycol 3350 17 GM Packet PO SCH (09:09)
[2020-03-30] MEDS: Aspirin Chewable 81 MG TAB PO SCH (09:09)
[2020-03-30] MEDS: Enoxaparin Sodium 40 MG/0.4 ML SYRINGE SC SCH ×2 (09:09→20:47)
[2020-03-30] MEDS: Lisinopril 10 MG TAB PO SCH ×2 (09:10→20:53)
[2020-03-30] MEDS: Carvedilol 25 MG TAB PO SCH ×2 (09:10→20:52)
[2020-03-30] MEDS: traMADol HCl 50 MG TAB PO PRN ×2 (09:11→14:17)
[2020-03-30] MEDS: Spironolactone 25 MG TAB PO SCH (09:11)
[2020-03-30] MEDS: Amiodarone 200 MG TAB PO SCH ×2 (09:11→20:50)
[2020-03-30] MEDS: Cefepime 2 GM in Sodium Chloride 0.9% 100 ML IVPB SCH ×2 (09:12→20:49)
--- NOTE | 2020-03-30 10:38 | PDOC.HOSPP ---
- Subjective Encounter Date: 03/30/20 Encounter Time: 07:15 Subjective: Patient is complaining of back pain, he has no shortness of breath, no fever, no chest pain, no cough - Objective Vital Signs & Weight: Vital Signs (12 hours) Temp Pulse Resp BP Pulse Ox 03/30/20 07:28 98.4 F 61 18 173/73 H 96 03/30/20 03:48 99.3 F 60 14 172/74 H 95 03/29/20 23:32 98.9 F 60 15 137/67 98 Weight Weight 236 lb 3 oz I&O: 03/29/20 03/30/20 03/31/20 06:59 06:59 06:59 Intake Total 600 2034 Output Total 1350 3275 Balance -508 -8673 Result Diagrams: 03/30/20 04:31 03/30/20 04:31 Additional Labs: Accuchecks 03/30/20 03/29/20 03/29/20 10:20 21:16 16:32 POC Glucose 115 H 138 H 97 03/29/20 10:41 POC Glucose 116 H Radiology Reviewed by me: Yes (Echo report reviewed) EKG Reviewed by me: Yes Hospitalist ROS - Review of Systems Eyes: denies: pain, vision change, conjunctivae inflammation, eyelid inflammation, redness, other ENT: denies: ear pain, ear discharge, nose pain, nose discharge, nose congestion, mouth pain, mouth swelling, throat pain, throat swelling, other Respiratory: denies: cough, dry, shortness of breath, hemoptysis, SOB with excertion, pleuritic pain, sputum, wheezing, other Cardiovascular: denies: chest pain, palpitations, orthopnea, paroxysmal noc. dyspnea, edema, light headedness, other Gastrointestinal: denies: nausea, vomiting, abdominal pain, diarrhea, constipation, melena, hematochezia, other Genitourinary: denies: dysuria, frequency, incontinence, hematuria, retention, o ther Musculoskeletal: reports: back pain. denies: neck pain, shoulder pain, arm pain, hand pain, leg pain, foot pain, other - Medication Medications: Active Medications Generic Name Dose Route Start Last Admin Trade Name Freq PRN Reason Stop Dose Admin Hydrocodone Bitart/Acetaminophen 1 tab 03/28/20 10:34 03/30/20 04:37 Hydrocodone/Acetaminophen 5/325 Mg Tablet PO 1 tab Q4H PRN Administration Moderate Pain (4-6) Amiodarone HCl 100 mg 03/29/20 21:00 03/30/20 09:11 Amiodarone 200 Mg Tab PO 100 mg BID JAMES Administration Amlodipine Besylate 10 mg 03/29/20 21:00 03/29/20 20:57 Amlodipine 10 Mg Tab PO 10 mg HS JAMES Administration Aspirin 81 mg 03/29/20 09:00 03/30/20 09:09 Aspirin Chewable 81 Mg Tab PO 81 mg DAILY JAMES Administration Atorvastatin Calcium 40 mg 03/29/20 21:00 03/29/20 20:57 Atorvastatin Calcium 40 Mg Tab PO 40 mg HS JAMES Administration Carvedilol 25 mg 03/29/20 09:00 03/30/20 09:10 Carvedilol 25 Mg Tab PO 25 mg BID JAMES Administration Clonidine 0.1 mg 03/29/20 21:00 03/30/20 09:09 Clonidine 0.1 Mg Tab PO 0.1 mg BID JAMES Administration Enoxaparin Sodium 40 mg 03/28/20 21:00 03/30/20 09:09 Enoxaparin Sodium 40 Mg/0.4 Ml Syringe SC 40 mg 0900,2100 JAMES Administration Ferrous Sulfate 325 mg 03/29/20 21:00 03/30/20 09:09 Ferrous Sulfate 325 Mg Tab PO 325 mg BID JAMES Administration Furosemide 40 mg 03/28/20 14:00 03/30/20 04:37 Furosemide 40 Mg/4 Ml Vial SLOW IVP 40 mg 0600,1400 JAMES Administration Gabapentin 600 mg 03/29/20 15:00 03/30/20 09:09 Gabapentin 300 Mg Cap PO 600 mg TID JAMES Administration Azithromycin 500 mg/ Sodium 250 mls @ 250 mls/hr 03/28/20 11:00 03/29/20 11:19 Chloride IVPB 250 mls 1100 JAMES Administration Cefepime HCl 2 gm/ Sodium 100 mls @ 200 mls/hr 03/28/20 21:00 03/30/20 09:12 Chloride IVPB 100 mls Q12HR JAMES Administration Lisinopril 20 mg 03/30/20 09:00 03/30/20 09:10 Lisinopril 10 Mg Tab PO 20 mg BID JAMES Administration Polyethylene Glycol 17 gm 03/30/20 09:00 03/30/20 09:09 Polyethylene Glycol 3350 17 Gm Packet PO 17 gm DAILY JAMES Administration Senna/Docusate Sodium 2 tab 03/28/20 10:34 03/30/20 09:08 Senokot S 8.6-50 Mg Tab PO 2 tab BID PRN Administration Constipation Sodium Chloride 10 ml 03/28/20 21:00 03/30/20 09:12 Flush - Normal Saline 10 Ml Syringe IVF 10 ml Q12HR JAMES Administration Sodium Chloride 10 ml 03/28/20 12:45 03/29/20 05:41 Flush - Normal Saline 10 Ml Syringe IVF 10 ml PRN PRN Administration Saline Flush Spironolactone 25 mg 03/30/20 08:00 03/30/20 09:11 Spironolactone 25 Mg Tab PO 25 mg QAM-WM JAMES Administration Tramadol HCl 50 mg 03/28/20 23:56 03/30/20 09:11 Tramadol Hcl 50 Mg Tab PO 50 mg Q4H PRN Administration Pain - Exam General Appearance: NAD, awake alert Eye: PERRL, anicteric sclera ENT: normocephalic atraumatic, no oropharyngeal lesions Neck: symmetric, no JVD, no thyromegaly Heart: RRR, no murmur, no gallops, no rubs Respiratory: no wheezes, no rales, no ronchi Gastrointestinal: soft, non-tender, non-distended, normal bowel sounds Extremities: no cyanosis, no clubbing, no edema Skin: normal turgor, no lesions Neurological: no focal deficits Musculoskeletal: normal tone, normal strength Psychiatric: normal affect, normal behavior Hosp A/P (1) Acute respiratory failure with hypoxemia Code(s): J96.01 - ACUTE RESPIRATORY FAILURE WITH HYPOXIA Status: Acute (2) Type 2 myocardial infarction Code(s): I21.A1 - MYOCARDIAL INFARCTION TYPE 2 Status: Acute (3) Acute CHF Code(s): I50.9 - HEART FAILURE, UNSPECIFIED Status: Acute Qualifiers: Heart failure type: systolic Qualified Code(s): I50.21 - Acute systolic (congestive) heart failure (4) Pneumonia Code(s): J18.9 - PNEUMONIA, UNSPECIFIED ORGANISM Status: Acute Qualifiers: Pneumonia type: aspiration pneumonia Laterality: left Lung location: upper lobe of lung (5) Diabetes type 2, controlled Code(s): E11.9 - TYPE 2 DIABETES MELLITUS WITHOUT COMPLICATIONS Status: Chronic Qualifiers: Diabetes mellitus half-way insulin use: with exterminator helper termite use (6) Hypertension Code(s): I10 - ESSENTIAL (PRIMARY) HYPERTENSION Status: Chronic Qualifiers: Hypertension type: essential hypertension Qualified Code(s): I10 - Essential (primary) hypertension (7) Dyslipidemia Code(s): E78.5 - HYPERLIPIDEMIA, UNSPECIFIED Status: Chronic (8) Gastroesophageal reflux disease Code(s): K21.9 - GASTRO-ESOPHAGEAL REFLUX DISEASE WITHOUT ESOPHAGITIS Status: Chronic Qualifiers: Esophagitis presence: without esophagitis Qualified Code(s): K21.9 - Gastro-esophageal reflux disease without esophagitis (9) Obesity (BMI 30-39.9) Code(s): E66.9 - OBESITY, UNSPECIFIED Status: Chronic (10) Chronic low back pain Code(s): M54.5 - LOW BACK PAIN; G89.29 - OTHER CHRONIC PAIN Status: Chronic (11) Anemia of chronic disease Code(s): D63.8 - ANEMIA IN OTHER CHRONIC DISEASES CLASSIFIED ELSEWHERE Status: Chronic - Plan old records reviewed/req, plan discussed w/ family, continue antibiotics, PT/OT, psychosocial rehabilitation counselor, DVT proph w/lovenox Continue IV Lasix Continue cefepime and azithromycin today Tomorrow we will change to oral antibiotic therapy Continue PT OT Expecting discharge in next 24 hours web site project manager needs to work on his placement, he may need to go back to rehab Continue goal-directed therapy for CHF
[2020-03-30] MEDS: Azithromycin 500 MG in Sodium Chloride 0.9% 250 ML 250 ML IVPB SCH (10:52)
[2020-03-30] MEDS: Atorvastatin Calcium 40 MG TAB PO SCH (20:52)
[2020-03-30] MEDS: Amlodipine 10 MG TAB PO SCH (20:53)
--- NOTE | 2020-03-31 | CON ---
DATE OF CONSULTATION: 03/30/2020 PRIMARY CARE PHYSICIAN: Akila Xiong MD PRIMARY CUTTER HELPER: Lauro Castellanos MD REFERRING CUTTER HELPER: Live Saucedo MD REASON FOR CONSULTATION: Chronic systolic heart failure with reduced left ventricular systolic function. CHIEF COMPLAINT: Dyspnea and fever. HISTORY OF PRESENT ILLNESS: Mr. Gilbert is a pleasant 69-year-old male, who is well known to me. He has a history of coronary artery disease and chronic systolic heart failure due to ischemic cardiomyopathy. In addition, he has a CERTIFIED GREEN BUILDING ENGINEER pacemaker placed by myself in June 2009. He recently had back surgery and was in rehab facility. He developed fevers and dyspnea with acute respiratory failure. He was seen in emergency department. CT scan showed no evidence of pulmonary embolism. He did have a left lower lobe pneumonia. He has been treated with antibiotics and is feeling better. Currently, he is lying in bed flat without edema. No dyspnea. He is able to speak in complete sentences. PAST MEDICAL HISTORY: 1. CERTIFIED GREEN BUILDING ENGINEER pacemaker. 2. Chronic systolic heart failure with ejection fraction of 45%. 3. Coronary artery disease. 4. Ischemic cardiomyopathy. 5. Hypertension. 6. Paroxysmal atrial fibrillation, on amiodarone, has declined anticoagulation. 7. Dyslipidemia. 8. Type 2 diabetes mellitus. 9. Renal insufficiency. 10. BPH. 11. Normochromic normocytic anemia. OUTPATIENT MEDICATIONS: Reviewed. REVIEW OF SYSTEMS: No orthopnea, edema, stroke, seizure, neurologic changes, melena, bright red blood per rectum, hematemesis, or chest discomfort. All others negative. SOCIAL HISTORY: . His is with him today. FAMILY HISTORY: Noncontributory. PHYSICAL EXAMINATION: GENERAL: Alert and oriented x4, in no apparent distress. VITAL SIGNS: Afebrile, blood pressure 173/73, pulse 61, respiratory rate 12. HEENT: No lesions. Sclerae clear. SKIN: No lesions. CARDIOVASCULAR: Regular rate and rhythm. No murmurs, gallops, or rubs. LUNGS: Clear to auscultation bilaterally. Normal respiratory effort. EXTREMITIES: No cyanosis, clubbing, or edema. ABDOMEN: Nontender, nondistended. DIAGNOSTIC STUDIES: EKG, sinus rhythm with biventricular pacing. LABORATORY DATA: WBC 7.9, hemoglobin 10.0, platelets 239. Sodium 139, potassium 3.9, BUN 28, creatinine 1.0, glucose 111. Troponin-I 2.[address] as above. Echocardiogram on March 29, 2020, mild left atrial enlargement, moderately increased left ventricular size with ejection fraction of 20% to 25%. Severe mitral regurgitation and mild tricuspid regurgitation. IMPRESSION AND PLAN: 1. Pneumonia with sepsis, improved. 2. Chronic systolic heart failure, compensated. Ejection fraction decreased from 45% on echocardiogram on December 02, 2019 and 20% to 25% on echocardiogram March 29, 2020, possibly due to sepsis, also consider ischemia. 3. Non-ST elevated myocardial infarction with peak troponin at 2.5. 4. CERTIFIED GREEN BUILDING ENGINEER-P with normal function. 5. Paroxysmal atrial fibrillation; on amiodarone, has declined anticoagulation. No evidence of atrial fibrillation here. RECOMMENDATIONS: 1. I would not place ICD or LifeVest at this time. 2. Consider ischemic evaluation at some point. If he remains stable during his hospital stay, I think it is reasonable to pursue this as an outpatient. 3. Continue to monitor his CERTIFIED GREEN BUILDING ENGINEER-P in our office. 4. Continue amiodarone and declines anticoagulation. I have discussed the case with Dr. Castellanos, his primary paddle dyeing machine operator, who will see him back as an outpatient. Job ID: [id number]
[2020-03-31] MEDS: Furosemide 40 MG/4 ML VIAL SLOW IVP SCH ×2 (05:59→15:21)
[2020-03-31] MEDS: HYDROcodone/Acetaminophen 5/325 mg Tablet PO PRN ×2 (05:59→10:18)
[2020-03-31] MEDS: Aspirin Chewable 81 MG TAB PO SCH (09:06)
[2020-03-31] MEDS: Lisinopril 10 MG TAB PO SCH ×2 (09:06→20:44)
[2020-03-31] MEDS: Polyethylene Glycol 3350 17 GM Packet PO SCH (09:06)
[2020-03-31] MEDS: cloNIDine 0.1 MG TAB PO SCH ×2 (09:06→20:44)
[2020-03-31] MEDS: Enoxaparin Sodium 40 MG/0.4 ML SYRINGE SC SCH ×2 (09:06→20:44)
[2020-03-31] MEDS: Gabapentin 300 MG CAP PO SCH ×3 (09:07→20:45)
[2020-03-31] MEDS: Amiodarone 200 MG TAB PO SCH ×2 (09:08→20:46)
[2020-03-31] MEDS: Ferrous Sulfate 325 MG TAB PO SCH ×2 (09:08→20:46)
[2020-03-31] MEDS: Spironolactone 25 MG TAB PO SCH (09:09)
[2020-03-31] MEDS: Cefepime 2 GM in Sodium Chloride 0.9% 100 ML IVPB SCH ×2 (09:09→20:43)
[2020-03-31] MEDS: Carvedilol 25 MG TAB PO SCH ×2 (09:09→20:46)
--- NOTE | 2020-03-31 10:04 | PDOC.DS.DS ---
Provider - Provider Date of Admission: 03/28/20 09:04 Date of Discharge: 03/31/20 Admitting Provider: Rossy Santos MD Consultations: Cardiology, Other (Electrophysiology) Primary Care Physician: Akila Xiong MD Course - Hospital Course Hospital Course: 69-year-old male who has multiple medical problem, he has underlying history of ischemic cardiomyopathy with chronic systolic heart failure with AICD, who was having a acute shortness of breath so 911 was called, patient was hypoxic at the scene, paramedics started on him nonrebreather and subsequently BiPAP, on admission patient was hypertensive and he was started on nitro drip, he was also given Lasix with a significant improvement, on admission chest x-ray showed pulmonary vascular congestion, as his D-dimer was slightly elevated CT angiography was done which showed no evidence of pulmonary embolism but there was developing left lower lobe and left upper lobe pneumonia, his COVID-19 test was negative, his BNP and troponin were elevated. His troponin elevation was attributed to be due to type II myocardial infarction secondary to congestive heart failure and pneumonia from demand ischemia, in the emergency room we wean off nitro drip as well as we wean off BiPAP and subsequently this patient was plan for admission to telemetry floor. Patient had blood culture done and he was treated with cefepime and azithromycin for pneumonia. His troponin was significantly elevated and there so we consulted cardiology and cardiology recommended electrophysiology consultation. This patient does not want to continue any chronic anticoagulation therapy, this patient had recently lumbar laminectomy at [facility] and patient was transferred to rehab facility and from there he was transferred to the hospital for acute congestive heart failure. While in hospital we treated her with empiric antibiotic and Lasix with a significant clinical improvement, he was on room air, we continued all his previous medication, on discharge be changed to Omnicef for another 7 days, Lasix was added in his regimen, he will continue all previous medication. We increased dose of lisinopril to 20 mg twice daily and Aldactone added. Patient is currently on goal-directed therapy. Patient seen and examined bedside today, currently patient does not have any symptoms, he has chronic low back pain but other than that respiration is significantly improved, he wants to go to rehab today. Resuscitation Status: 03/28/20 10:34 Resuscitation Status Routine Resuscitation Status: FULL: Full Resuscitation - Labs Lab Results: 03/30/20 04:31 12/07/20 04:31 Abnormal Lab Results - Last 48 hrs 03/30/20 04:31: BUN 28 H 03/30/20 04:31: RBC 3.32 L, Hgb 10.0 L, Hct 30.8 L, Lymphocytes % 19.7 L, Monocytes % 14.4 H, Monocytes # 1.1 H Microbiology - Entire Visit 03/28/20 07:23 Venous blood - Left Arm Blood Culture - Preliminary NO GROWTH AT 48 HOURS 03/28/20 07:23 Venous blood - Right Arm Blood Culture - Preliminary NO GROWTH AT 48 HOURS - Diagnostic Interpretation Other Status: image reviewed by me Additional comments: Chest x-ray on admission showed pulmonary vascular congestion, CT angiography on admission showed no evidence of pulmonary embolism, developing left lower lobe and left upper lobe pneumonia Echocardiography showed EF 20 to 25% severe mitral regurgitation, - Physical Exam Vitals: Vital Signs (12 hours) Temp Pulse Resp BP Pulse Ox 03/31/20 07:21 98.4 F 60 16 126/62 97 03/31/20 04:05 98.4 F 60 11 L 153/72 H 96 03/30/20 23:50 97.4 F L 60 16 145/64 H 95 Weight Weight 238 lb 4 oz Physical Exam: The patient was seen and examined on the day of discharge. General patient is currently alert and awake no acute distress Head normocephalic atraumatic Neck supple no JVD no meningeal signs of irritation Lungs grossly clear to auscultation without any rhonchi or rales Cardiac S1-S2 appears regular, paced rhythm, no gallop no rub Abdomen soft, bowel sound present, obesity noted, no peritoneal sign Extremity no edema, good distal pulsation Skin no skin rash Hematological system no lymphadenopathy Neurologic nonfocal examination Problem - Problem (1) Acute respiratory failure with hypoxemia Code(s): J96.01 - ACUTE RESPIRATORY FAILURE WITH HYPOXIA Status: Resolved (2) Type 2 myocardial infarction Code(s): I21.A1 - MYOCARDIAL INFARCTION TYPE 2 Status: Acute Plan: Due to demand ischemia from congestive heart failure and pneumonia (3) Acute CHF Code(s): I50.9 - HEART FAILURE, UNSPECIFIED Status: Acute Qualifiers: Heart failure type: systolic Qualified Code(s): I50.21 - Acute systolic (congestive) heart failure (4) Pneumonia Code(s): J18.9 - PNEUMONIA, UNSPECIFIED ORGANISM Status: Acute Qualifiers: Aspiration pneumonia type: unspecified Laterality: left Lung location: upper lobe of lung (5) Diabetes type 2, controlled Code(s): E11.9 - TYPE 2 DIABETES MELLITUS WITHOUT COMPLICATIONS Status: Chronic Qualifiers: Diabetes mellitus longterm insulin use: with temperature inspector use (6) Hypertension Code(s): I10 - ESSENTIAL (PRIMARY) HYPERTENSION Status: Chronic Qualifiers: Hypertension type: essential hypertension Qualified Code(s): I10 - Essential (primary) hypertension (7) Dyslipidemia Code(s): E78.5 - HYPERLIPIDEMIA, UNSPECIFIED Status: Chronic (8) Gastroesophageal reflux disease Code(s): K21.9 - GASTRO-ESOPHAGEAL REFLUX DISEASE WITHOUT ESOPHAGITIS Status: Chronic Qualifiers: Esophagitis presence: without esophagitis Qualified Code(s): K21.9 - Gastro-esophageal reflux disease without esophagitis (9) Obesity (BMI 30-39.9) Code(s): E66.9 - OBESITY, UNSPECIFIED Status: Chronic (10) Chronic low back pain Code(s): M54.5 - LOW BACK PAIN; G89.29 - OTHER CHRONIC PAIN Status: Chronic (11) Anemia of chronic disease Code(s): D63.8 - ANEMIA IN OTHER CHRONIC DISEASES CLASSIFIED ELSEWHERE Status: Chronic Plan - Discharge Medications Prescriptions: Cefdinir 300 mg PO Q12HR #14 capsule Spironolactone [Aldactone] 25 mg PO QAM- #30 tab Furosemide [Lasix] 40 mg PO BID #60 tab Lisinopril [Zestril] 20 mg PO BID #120 tab Home Medications: Medication Instructions Recorded Confirmed Type Amiodarone [Cordarone] 100 mg PO BID 11/18/19 03/28/20 History Amlodipine [Norvasc] 10 mg PO HS 11/18/19 03/28/20 History Aspirin [Ecotrin Low Strength] 81 mg PO DAILY 11/18/19 03/28/20 History Atorvastatin Calcium [Lipitor] 10 mg PO HS 11/18/19 03/28/20 History Carvedilol [Coreg] 25 mg PO BID 11/18/19 03/28/20 History Ferrous Sulfate 325 mg PO BID 11/18/19 03/28/20 History Gabapentin [Neurontin] 600 mg PO TID 11/18/19 03/28/20 History Multivitamin [Multi-Vitamin Daily] 1 tablet PO DAILY 11/18/19 03/28/20 History cloNIDine HCl 0.1 mg PO BID 11/18/19 03/28/20 History metFORMIN [Glucophage] 500 mg PO BID- 11/18/19 03/28/20 History Calcium Carbonate [Tums] 500 - 1,000 mg PO Q6H PRN 03/28/20 03/28/20 History HYDROcodone Bit/APAP 5/325 [[place]] 1 tab PO Q4HR PRN 03/28/20 03/28/20 History Insulin Regular [HumuLIN R Vial] 0 unit SC TID- 03/28/20 03/28/20 History Magnesium Hydroxide [Milk Of 30 ml PO DAILY PRN 03/28/20 03/28/20 History Magnesium] Pantoprazole [Protonix] 40 mg PO DAILY 03/28/20 03/28/20 History Polyethylene Glycol 3350 [Miralax] 17 gm PO DAILY 03/28/20 03/28/20 History Simethicone [Mylicon Chewable] 80 mg PO TID PRN 03/28/20 03/28/20 History cloNIDine [Catapres] 0.1 mg PO Q6H PRN 03/28/20 03/28/20 History guaiFENesin [Guaifenesin] 200 mg PO Q4H PRN 03/28/20 03/28/20 History traZODone HCl [Trazodone HCl] 50 mg PO HS PRN 03/28/20 03/28/20 History Cefdinir 300 mg PO Q12HR #14 capsule 03/31/20 Rx Furosemide [Lasix] 40 mg PO BID #60 tab 03/31/20 Rx Lisinopril [Zestril] 20 mg PO BID #120 tab 03/31/20 Rx Spironolactone [Aldactone] 25 mg PO QAM- #30 tab 03/31/20 Rx Allergies: No Known Allergies Allergy (Verified 03/28/20 23:07) - Discharge Instructions Activity:: Activity as Tolerated Nourishment:: Diabetic Diet Therapies:: Occupational Therapy, Physical Therapy Equipment/Supplies:: Not Applicable IV Therapy:: Not Applicable - Follow up Plan Referrals: Akila iXong MD [Primary Care Provider] - Disposition: REHABILITATION INPATIENT Quality - Care Measures CORE MEASURES:: HF (Coreg, lisinopril, Lasix, spironolactone, patient is currently on goal-directed therapy.)
[2020-03-31] MEDS: Azithromycin 500 MG in Sodium Chloride 0.9% 250 ML 250 ML IVPB SCH (10:32)
[2020-03-31] MEDS: Atorvastatin Calcium 40 MG TAB PO SCH (20:47)
[2020-03-31] MEDS ORDERED: Amlodipine 10 MG TAB PO SCH (21:00)
[2020-04-01] MEDS: HYDROcodone/Acetaminophen 5/325 mg Tablet PO PRN ×2 (04:09→22:30)
[2020-04-01] MEDS: Furosemide 40 MG/4 ML VIAL SLOW IVP SCH ×2 (04:59→15:34)
[2020-04-01] MEDS: Spironolactone 25 MG TAB PO SCH (09:09)
[2020-04-01] MEDS: Gabapentin 300 MG CAP PO SCH ×3 (09:09→21:09)
[2020-04-01] MEDS: Lisinopril 10 MG TAB PO SCH ×2 (09:09→21:09)
[2020-04-01] MEDS: Carvedilol 25 MG TAB PO SCH ×2 (09:09→21:12)
[2020-04-01] MEDS: Ferrous Sulfate 325 MG TAB PO SCH ×2 (09:09→21:10)
[2020-04-01] MEDS: Cefepime 2 GM in Sodium Chloride 0.9% 100 ML IVPB SCH ×2 (09:10→21:08)
[2020-04-01] MEDS: Aspirin Chewable 81 MG TAB PO SCH (09:10)
[2020-04-01] MEDS: Amiodarone 200 MG TAB PO SCH ×2 (09:10→21:12)
[2020-04-01] MEDS: Enoxaparin Sodium 40 MG/0.4 ML SYRINGE SC SCH ×2 (09:11→21:12)
[2020-04-01] MEDS: Polyethylene Glycol 3350 17 GM Packet PO SCH (09:11)
[2020-04-01] MEDS: cloNIDine 0.1 MG TAB PO SCH (09:16)
[2020-04-01] MEDS: Azithromycin 500 MG in Sodium Chloride 0.9% 250 ML 250 ML IVPB SCH (12:07)
[2020-04-01] MEDS: hydrALAZINE 25 MG TAB PO SCH ×2 (15:38→21:12)
[2020-04-01] MEDS: Isosorbide Dinitrate 20 MG TAB PO SCH ×2 (15:38→21:11)
[2020-04-01] MEDS: Atorvastatin Calcium 40 MG TAB PO SCH (21:10)
[2020-04-02] MEDS: Furosemide 40 MG/4 ML VIAL SLOW IVP SCH ×2 (06:03→15:25)
[2020-04-02] MEDS ORDERED: cloNIDine 0.1 MG TAB PO SCH (09:00)
[2020-04-02] MEDS: Amiodarone 200 MG TAB PO SCH ×2 (09:14→20:58)
[2020-04-02] MEDS: Lisinopril 10 MG TAB PO SCH ×2 (09:15→20:57)
[2020-04-02] MEDS: Aspirin Chewable 81 MG TAB PO SCH (09:15)
[2020-04-02] MEDS: Gabapentin 300 MG CAP PO SCH ×3 (09:15→20:58)
[2020-04-02] MEDS: Spironolactone 25 MG TAB PO SCH (09:15)
[2020-04-02] MEDS: Carvedilol 25 MG TAB PO SCH ×2 (09:16→20:57)
[2020-04-02] MEDS: Ferrous Sulfate 325 MG TAB PO SCH ×2 (09:16→20:59)
[2020-04-02] MEDS: Enoxaparin Sodium 40 MG/0.4 ML SYRINGE SC SCH ×2 (09:16→20:57)
[2020-04-02] MEDS: Polyethylene Glycol 3350 17 GM Packet PO SCH (09:16)
[2020-04-02] MEDS: HYDROcodone/Acetaminophen 5/325 mg Tablet PO PRN (09:16)
[2020-04-02] MEDS: Cefepime 2 GM in Sodium Chloride 0.9% 100 ML IVPB SCH ×2 (09:17→20:55)
[2020-04-02] MEDS: hydrALAZINE 25 MG TAB PO SCH ×4 (09:22→20:56)
[2020-04-02] MEDS: Isosorbide Dinitrate 20 MG TAB PO SCH ×4 (09:22→20:58)
[2020-04-02] MEDS: Azithromycin 500 MG in Sodium Chloride 0.9% 250 ML 250 ML IVPB SCH (11:35)
--- NOTE | 2020-04-02 12:08 | PDOC.EVN ---
Event Note - Event Note Event Note: Patient's discharge previously held by cardiology yesterday. Cleared by cardiology to return to rehab today, able to proceed with transfer back to inpatient rehab. Medication list updated with cardiology's recommendations. Patient seen and examined on day of discharge. Please refer to Dr. Santos's discharge summary for hospital course.
--- NOTE | 2020-04-02 14:31 | PDOC.HOSPP ---
- Subjective Encounter Date: 04/02/20 Encounter Time: 12:05 Subjective: Patient is seen as a follow-up today as he awaits a rehab bed. He denies shortness of breath, fever, chest pain, cough. Medication changes have been made by cardiology and implemented. Patient's discharge previously held by cardiology yesterday. Cleared by cardiology to return to rehab today, able to proceed with transfer back to inpatient rehab. Case management assisting with return to rehab. - Objective Vital Signs & Weight: Vital Signs (12 hours) Temp Pulse Resp BP Pulse Ox 04/02/20 11:31 98.1 F 59 L 17 109/57 L 94 L 04/02/20 07:01 99.0 F 60 17 147/67 H 93 L 04/02/20 03:07 98.3 F 60 16 139/63 95 Weight Weight 233 lb 12.8 oz I&O: 04/01/20 04/02/20 04/03/20 06:59 06:59 06:59 Intake Total 1480 720 Output Total 2600 975 Balance -1120 -255 Result Diagrams: 03/30/20 04:31 03/30/20 04:31 Additional Labs: Accuchecks 04/02/20 04/02/20 04/01/20 10:53 05:46 20:29 POC Glucose 161 H 106 H 161 H 04/01/20 16:46 POC Glucose 112 H Hospitalist ROS - Medication Medications: Active Medications Generic Name Dose Route Start Last Admin Trade Name Freq PRN Reason Stop Dose Admin Hydrocodone Bitart/Acetaminophen 1 tab 03/28/20 10:34 04/02/20 09:16 Hydrocodone/Acetaminophen 5/325 Mg Tablet PO 1 tab Q4H PRN Administration Moderate Pain (4-6) Amiodarone HCl 100 mg 03/29/20 21:00 04/02/20 09:14 Amiodarone 200 Mg Tab PO 100 mg BID JAMES Administration Aspirin 81 mg 03/29/20 09:00 04/02/20 09:15 Aspirin Chewable 81 Mg Tab PO 81 mg DAILY JAMES Administration Atorvastatin Calcium 40 mg 03/29/20 21:00 04/01/20 21:10 Atorvastatin Calcium 40 Mg Tab PO 40 mg HS JAMES Administration Carvedilol 25 mg 03/29/20 09:00 04/02/20 09:16 Carvedilol 25 Mg Tab PO 25 mg BID JAMES Administration Enoxaparin Sodium 40 mg 03/28/20 21:00 04/02/20 09:16 Enoxaparin Sodium 40 Mg/0.4 Ml Syringe SC 40 mg 0900,2100 JAMES Administration Ferrous Sulfate 325 mg 03/29/20 21:00 04/02/20 09:16 Ferrous Sulfate 325 Mg Tab PO 325 mg BID JAMES Administration Furosemide 40 mg 03/28/20 14:00 04/02/20 06:03 Furosemide 40 Mg/4 Ml Vial SLOW IVP 40 mg 0600,1400 JAMES Administration Gabapentin 600 mg 03/29/20 15:00 04/02/20 09:15 Gabapentin 300 Mg Cap PO 600 mg TID JAMES Administration Hydralazine HCl 37.5 mg 04/02/20 09:00 04/02/20 09:23 Hydralazine 25 Mg Tab PO 37.5 mg TID JAMES Administration Azithromycin 500 mg/ Sodium 250 mls @ 250 mls/hr 03/28/20 11:00 04/02/20 11:35 Chloride IVPB 250 mls 1100 JAMES Administration Cefepime HCl 2 gm/ Sodium 100 mls @ 200 mls/hr 03/28/20 21:00 04/02/20 09:17 Chloride IVPB 100 mls Q12HR JAMES Administration Insulin Human Lispro 0 units 03/28/20 10:34 03/31/20 10:32 Humalog 300 Units/3 Ml Vial SC 2 unit .MODERATE SLIDING SC PRN Administration Moderate Correctional Scale Isosorbide Dinitrate 20 mg 04/02/20 09:00 04/02/20 09:23 Isosorbide Dinitrate 20 Mg Tab PO 20 mg TID JAMES Administration Lisinopril 20 mg 03/30/20 09:00 04/02/20 09:15 Lisinopril 10 Mg Tab PO 20 mg BID JAMES Administration Polyethylene Glycol 17 gm 03/30/20 09:00 04/02/20 09:16 Polyethylene Glycol 3350 17 Gm Packet PO 17 gm DAILY JAMES Administration Senna/Docusate Sodium 2 tab 03/28/20 10:34 03/30/20 20:52 Senokot S 8.6-50 Mg Tab PO 2 tab BID PRN Administration Constipation Sodium Chloride 10 ml 03/28/20 21:00 04/02/20 09:30 Flush - Normal Saline 10 Ml Syringe IVF Not Given Q12HR JAMES Sodium Chloride 10 ml 03/28/20 12:45 03/29/20 05:41 Flush - Normal Saline 10 Ml Syringe IVF 10 ml PRN PRN Administration Saline Flush Spironolactone 25 mg 03/30/20 08:00 04/02/20 09:15 Spironolactone 25 Mg Tab PO 25 mg QAM-WM JAMES Administration Tramadol HCl 50 mg 03/28/20 23:56 03/30/20 14:17 Tramadol Hcl 50 Mg Tab PO 50 mg Q4H PRN Administration Pain - Exam General Appearance: NAD, awake alert Neck: supple Heart: RRR, no murmur, no gallops, no rubs, normal peripheral pulses Respiratory: CTAB, no wheezes, no rales, no ronchi, normal chest expansion Gastrointestinal: soft, non-tender, non-distended, normal bowel sounds Extremities: no edema Psychiatric: normal affect, normal behavior Hosp A/P (1) Acute respiratory failure with hypoxemia Code(s): J96.01 - ACUTE RESPIRATORY FAILURE WITH HYPOXIA Status: Acute (2) Acute CHF Code(s): I50.9 - HEART FAILURE, UNSPECIFIED Status: Acute Qualifiers: Heart failure type: systolic Qualified Code(s): I50.21 - Acute systolic ( congestive) heart failure (3) Pneumonia Code(s): J18.9 - PNEUMONIA, UNSPECIFIED ORGANISM Status: Acute Qualifiers: Aspiration pneumonia type: unspecified Laterality: left Lung location: upper lobe of lung (4) Type 2 myocardial infarction Code(s): I21.A1 - MYOCARDIAL INFARCTION TYPE 2 Status: Acute (5) Chronic low back pain Code(s): M54.5 - LOW BACK PAIN; G89.29 - OTHER CHRONIC PAIN Status: Chronic (6) Diabetes type 2, controlled Code(s): E11.9 - TYPE 2 DIABETES MELLITUS WITHOUT COMPLICATIONS Status: Chronic Qualifiers: Diabetes mellitus detective chief insulin use: with detective chief use (7) Dyslipidemia Code(s): E78.5 - HYPERLIPIDEMIA, UNSPECIFIED Status: Chronic (8) Gastroesophageal reflux disease Code(s): K21.9 - GASTRO-ESOPHAGEAL REFLUX DISEASE WITHOUT ESOPHAGITIS Status: Chronic Qualifiers: Esophagitis presence: without esophagitis Qualified Code(s): K21.9 - Gastro-esophageal reflux disease without esophagitis (9) Hypertension Code(s): I10 - ESSENTIAL (PRIMARY) HYPERTENSION Status: Chronic Qualifiers: Hypertension type: essential hypertension Qualified Code(s): I10 - Essent ial (primary) hypertension (10) Obesity (BMI 30-39.9) Code(s): E66.9 - OBESITY, UNSPECIFIED Status: Chronic (11) Anemia of chronic disease Code(s): D63.8 - ANEMIA IN OTHER CHRONIC DISEASES CLASSIFIED ELSEWHERE Status: Chronic - Plan Patient is unable to return to rehab today as he is waiting for a bed, should be tomorrow when he goes Appreciate cardiology's recommendations Continue antibiotics as previously prescribed Continue PT OT Expecting discharge in next 24 hours
[2020-04-02] MEDS: Atorvastatin Calcium 40 MG TAB PO SCH (20:57)
[2020-04-03] MEDS: Furosemide 40 MG/4 ML VIAL SLOW IVP SCH ×2 (05:15→15:46)
[2020-04-03] MEDS: Carvedilol 25 MG TAB PO SCH ×2 (08:14→20:47)
[2020-04-03] MEDS: Aspirin Chewable 81 MG TAB PO SCH (08:14)
[2020-04-03] MEDS: Gabapentin 300 MG CAP PO SCH ×3 (08:14→20:46)
[2020-04-03] MEDS: hydrALAZINE 25 MG TAB PO SCH ×3 (08:15→20:45)
[2020-04-03] MEDS: Lisinopril 10 MG TAB PO SCH ×2 (08:15→20:45)
[2020-04-03] MEDS: Spironolactone 25 MG TAB PO SCH (08:16)
[2020-04-03] MEDS: Amiodarone 200 MG TAB PO SCH ×2 (08:16→20:47)
[2020-04-03] MEDS: Isosorbide Dinitrate 20 MG TAB PO SCH ×3 (08:16→20:46)
[2020-04-03] MEDS: Ferrous Sulfate 325 MG TAB PO SCH ×2 (08:16→20:46)
[2020-04-03] MEDS: Polyethylene Glycol 3350 17 GM Packet PO SCH (08:17)
[2020-04-03] MEDS: Cefepime 2 GM in Sodium Chloride 0.9% 100 ML IVPB SCH ×2 (08:17→20:44)
[2020-04-03] MEDS: Enoxaparin Sodium 40 MG/0.4 ML SYRINGE SC SCH ×2 (08:19→20:44)
--- NOTE | 2020-04-03 10:37 | PDOC.HOSPP ---
- Subjective Encounter Date: 04/03/20 Encounter Time: 10:30 Subjective: No overnight events. Patient awaiting rehab bed, with plans for discharge today. Discharged was delayed while waiting on bed placement. - Objective Vital Signs & Weight: Vital Signs (12 hours) Temp Pulse Resp BP Pulse Ox 04/03/20 08:15 60 04/03/20 04:00 98.4 F 60 16 124/58 L 99 04/03/20 00:56 96 04/03/20 00:00 114/55 L Weight Weight 231 lb I&O: 04/02/20 04/03/20 04/04/20 06:59 06:59 06:59 Intake Total 720 840 Output Total 975 1650 Balance -255 -810 Result Diagrams: 03/30/20 04:31 03/30/20 04:31 Additional Labs: Accuchecks 04/03/20 04/02/20 04/02/20 06:39 19:43 17:05 POC Glucose 103 H 133 H 101 H 04/02/20 10:53 POC Glucose 161 H Hospitalist ROS - Review of Systems Constitutional: denies: fever, chills, sweats Eyes: denies: vision change ENT: denies: nose congestion, throat pain Respiratory: denies: cough, dry, shortness of breath, hemoptysis, SOB with excertion, sputum Cardiovascular: denies: chest pain, palpitations, orthopnea, paroxysmal noc. dyspnea, edema, light headedness, other Gastrointestinal: denies: nausea, vomiting, abdominal pain, diarrhea, constipation, melena, hematochezia, other Genitourinary: denies: dysuria, frequency, incontinence, hematuria, retention, other Musculoskeletal: denies: neck pain, shoulder pain, arm pain, back pain, hand pain, leg pain, foot pain, other Skin: denies: rash, lesions, sally, bruising, other Neurological: denies: weakness, numbness, incoordination, change in speech, confusion, seizures, other - Medication Medications: Active Medications Generic Name Dose Route Start Last Admin Trade Name Freq PRN Reason Stop Dose Admin Acetaminophen 650 mg 03/28/20 10:34 04/02/20 20:55 Acetaminophen 325 Mg Tab PO 650 mg Q4H PRN Administration Headache/Fever/Mild Pain (1-3) Hydrocodone Bitart/Acetaminophen 1 tab 03/28/20 10:34 04/02/20 09:16 Hydrocodone/Acetaminophen 5/325 Mg Tablet PO 1 tab Q4H PRN Administration Moderate Pain (4-6) Amiodarone HCl 100 mg 03/29/20 21:00 04/03/20 08:16 Amiodarone 200 Mg Tab PO 100 mg BID JAMES Administration Aspirin 81 mg 03/29/20 09:00 04/03/20 08:14 Aspirin Chewable 81 Mg Tab PO 81 mg DAILY JAMES Administration Atorvastatin Calcium 40 mg 03/29/20 21:00 04/02/20 20:57 Atorvastatin Calcium 40 Mg Tab PO 40 mg HS JAMES Administration Carvedilol 25 mg 03/29/20 09:00 04/03/20 08:14 Carvedilol 25 Mg Tab PO 25 mg BID JAMES Administration Enoxaparin Sodium 40 mg 03/28/20 21:00 04/03/20 08:19 Enoxaparin Sodium 40 Mg/0.4 Ml Syringe SC 40 mg 0900,2100 JAMES Administration Ferrous Sulfate 325 mg 03/29/20 21:00 04/03/20 08:16 Ferrous Sulfate 325 Mg Tab PO 325 mg BID JAMES Administration Furosemide 40 mg 03/28/20 14:00 04/03/20 05:15 Furosemide 40 Mg/4 Ml Vial SLOW IVP 40 mg 0600,1400 JAMES Administration Gabapentin 600 mg 03/29/20 15:00 04/03/20 08:14 Gabapentin 300 Mg Cap PO 600 mg TID JAMES Administration Hydralazine HCl 37.5 mg 04/02/20 09:00 04/03/20 08:15 Hydralazine 25 Mg Tab PO 37.5 mg TID JAMES Administration Azithromycin 500 mg/ Sodium 250 mls @ 250 mls/hr 03/28/20 11:00 04/02/20 11:35 Chloride IVPB 250 mls 1100 JAMES Administration Cefepime HCl 2 gm/ Sodium 100 mls @ 200 mls/hr 03/28/20 21:00 04/03/20 08:17 Chloride IVPB 100 mls Q12HR JAMES Administration Insulin Human Lispro 0 units 03/28/20 10:34 03/31/20 10:32 Humalog 300 Units/3 Ml Vial SC 2 unit .MODERATE SLIDING SC PRN Administration Moderate Correctional Scale Isosorbide Dinitrate 20 mg 04/02/20 09:00 04/03/20 08:16 Isosorbide Dinitrate 20 Mg Tab PO 20 mg TID JAMES Administration Lisinopril 20 mg 03/30/20 09:00 04/03/20 08:15 Lisinopril 10 Mg Tab PO 20 mg BID JAMES Administration Polyethylene Glycol 17 gm 03/30/20 09:00 04/03/20 08:17 Polyethylene Glycol 3350 17 Gm Packet PO Not Given DAILY JAMES Senna/Docusate Sodium 2 tab 03/28/20 10:34 03/30/20 20:52 Senokot S 8.6-50 Mg Tab PO 2 tab BID PRN Administration Constipation Sodium Chloride 10 ml 03/28/20 21:00 04/03/20 08:17 Flush - Normal Saline 10 Ml Syringe IVF 10 ml Q12HR JAMES Administration Sodium Chloride 10 ml 03/28/20 12:45 03/29/20 05:41 Flush - Normal Saline 10 Ml Syringe IVF 10 ml PRN PRN Administration Saline Flush Spironolactone 25 mg 03/30/20 08:00 04/03/20 08:16 Spironolactone 25 Mg Tab PO 25 mg QAM-WM JAMES Administration Tramadol HCl 50 mg 03/28/20 23:56 03/30/20 14:17 Tramadol Hcl 50 Mg Tab PO 50 mg Q4H PRN Administration Pain - Exam General Appearance: NAD, awake alert Eye: PERRL, anicteric sclera ENT: normocephalic atraumatic, no oropharyngeal lesions, moist mucosa Neck: supple, symmetric, no JVD, no thyromegaly, no lymphadenopathy, no carotid bruit Heart: RRR, no murmur, no gallops, no rubs, normal peripheral pulses Respiratory: CTAB, no wheezes, no rales, no ronchi, normal chest expansion, no tachypnea, normal percussion Gastrointestinal: soft, non-tender, non-distended, normal bowel sounds, no palp able masses, no hepatomegaly, no splenomegaly, no bruit Extremities: no cyanosis, no clubbing, no edema Skin: normal turgor, no lesions, no rashes Neurological: cranial nerve grossly intact, normal sensation to touch, no weak ness, no focal deficits, no new deficit Musculoskeletal: normal tone, normal strength, no muscle wasting Psychiatric: normal affect, normal behavior, A&O x 3 Hosp A/P - Plan 69-year-old male who has multiple medical problem, he has underlying history of ischemic cardiomyopathy with chronic systolic heart failure with AICD, who was having a acute shortness of breath so 911 was called, patient was hypoxic at the scene, paramedics started on him nonrebreather and subsequently BiPAP, on admission patient was hypertensive and he was started on nitro drip, he was also given Lasix with a significant improvement, on admission chest x-ray showed pulmonary vascular congestion, as his D-dimer was slightly elevated CT angiography was done which showed no evidence of pulmonary embolism but there wa s developing left lower lobe and left upper lobe pneumonia, his COVID-19 test was negative, his BNP and troponin were elevated. His troponin elevation was attributed to be due to type II myocardial infarction secondary to congestive heart failure and pneumonia from demand ischemia, in the emergency room we wean off nitro drip as well as we wean off BiPAP and subsequently this patient was plan for admission to telemetry floor. Patient had blood culture done and he was treated with cefepime and azithromycin for pneumonia. His troponin was significantly elevated and there so we consulted cardiology and cardiology recommended electrophysiology consultation. This patient does not want to continue any chronic anticoagulation therapy, this patient had recently lumbar laminectomy at [facility] and patient was transferred to rehab facility and from there he was transferred to the hospital for acute congestive heart failure. While in hospital we treated her with empiric antibiotic and Lasix with a significant clinical improvement, he was on room air, we continued all his pre vious medication, on discharge be changed to Omnicef for another 7 days, Lasix was added in his regimen, he will continue all previous medication. We increased dose of lisinopril to 40 mg twice daily and Aldactone 25 mg added. Patient is currently on goal-directed therapy. Discharge was delayed secondary to finding a rehab bed. Patient stable with no new complaints. Medically ready for discharge. Please refer to discharge summary dictated by Dr. Santos.
[2020-04-03] MEDS: Azithromycin 500 MG in Sodium Chloride 0.9% 250 ML 250 ML IVPB SCH (11:22)
[2020-04-03] MEDS: HYDROcodone/Acetaminophen 5/325 mg Tablet PO PRN (11:24)
[2020-04-03] MEDS: Atorvastatin Calcium 40 MG TAB PO SCH (20:45)
[2020-04-04] MEDS: Furosemide 40 MG/4 ML VIAL SLOW IVP SCH ×2 (05:31→15:02)
[2020-04-04] MEDS: HYDROcodone/Acetaminophen 5/325 mg Tablet PO PRN ×2 (05:40→11:47)
--- NOTE | 2020-04-04 08:56 | PDOC.HOSPP ---
- Subjective Encounter Date: 04/04/20 Encounter Time: 08:49 Subjective: No overnight events. Patient denies chest pain, shortness of breath, abdominal pain. States that he overall feels well and is ready for discharge back to rehab. We are still waiting on bed placement. Chart and medications reviewed. - Objective Vital Signs & Weight: Vital Signs (12 hours) Temp Pulse Resp BP Pulse Ox 04/04/20 04:00 98.5 F 60 18 135/65 97 04/04/20 02:47 95 04/04/20 00:00 98.7 F 60 14 119/54 L 95 Weight Weight 230 lb 12.8 oz I&O: 04/03/20 04/04/20 04/05/20 06:59 06:59 06:59 Intake Total 840 1200 Output Total 1650 1450 300 Balance -810 -250 -300 Result Diagrams: 03/30/20 04:31 03/30/20 04:31 Additional Labs: Accuchecks 04/04/20 04/03/20 04/03/20 06:19 20:44 17:26 POC Glucose 110 H 152 H 96 04/03/20 10:45 POC Glucose 123 H Hospitalist ROS - Review of Systems Constitutional: denies: fever, chills, sweats Eyes: denies: vision change ENT: denies: nose congestion, throat pain Respiratory: denies: cough, shortness of breath, hemoptysis Cardiovascular: denies: chest pain, palpitations, light headedness Gastrointestinal: denies: nausea, vomiting, abdominal pain, diarrhea, melena, hematochezia Genitourinary: denies: dysuria, hematuria Skin: denies: rash, lesions Neurological: denies: weakness, numbness - Medication Medications: Active Medications Generic Name Dose Route Start Last Admin Trade Name Freq PRN Reason Stop Dose Admin Acetaminophen 650 mg 03/28/20 10:34 04/02/20 20:55 Acetaminophen 325 Mg Tab PO 650 mg Q4H PRN Administration Headache/Fever/Mild Pain (1-3) Hydrocodone Bitart/Acetaminophen 1 tab 03/28/20 10:34 04/04/20 05:40 Hydrocodone/Acetaminophen 5/325 Mg Tablet PO 1 tab Q4H PRN Administration Moderate Pain (4-6) Amiodarone HCl 100 mg 03/29/20 21:00 04/03/20 20:47 Amiodarone 200 Mg Tab PO 100 mg BID JAMES Administration Aspirin 81 mg 03/29/20 09:00 04/03/20 08:14 Aspirin Chewable 81 Mg Tab PO 81 mg DAILY JAMES Administration Atorvastatin Calcium 40 mg 03/29/20 21:00 04/03/20 20:45 Atorvastatin Calcium 40 Mg Tab PO 40 mg HS JAMES Administration Carvedilol 25 mg 03/29/20 09:00 04/03/20 20:47 Carvedilol 25 Mg Tab PO 25 mg BID JAMES Administration Enoxaparin Sodium 40 mg 03/28/20 21:00 04/03/20 20:44 Enoxaparin Sodium 40 Mg/0.4 Ml Syringe SC 40 mg 0900,2100 JAMES Administration Ferrous Sulfate 325 mg 03/29/20 21:00 04/03/20 20:46 Ferrous Sulfate 325 Mg Tab PO 325 mg BID JAMES Administration Furosemide 40 mg 03/28/20 14:00 04/04/20 05:31 Furosemide 40 Mg/4 Ml Vial SLOW IVP 40 mg 0600,1400 JAMES Administration Gabapentin 600 mg 03/29/20 15:00 04/03/20 20:46 Gabapentin 300 Mg Cap PO 600 mg TID JAMES Administration Hydralazine HCl 37.5 mg 04/02/20 09:00 04/03/20 20:45 Hydralazine 25 Mg Tab PO 37.5 mg TID JAMES Administration Azithromycin 500 mg/ Sodium 250 mls @ 250 mls/hr 03/28/20 11:00 04/03/20 11:22 Chloride IVPB 250 mls 1100 JAMES Administration Cefepime HCl 2 gm/ Sodium 100 mls @ 200 mls/hr 03/28/20 21:00 04/03/20 20:44 Chloride IVPB 100 mls Q12HR JAMES Administration Insulin Human Lispro 0 units 03/28/20 10:34 03/31/20 10:32 Humalog 300 Units/3 Ml Vial SC 2 unit .MODERATE SLIDING SC PRN Administration Moderate Correctional Scale Isosorbide Dinitrate 20 mg 04/02/20 09:00 04/03/20 20:46 Isosorbide Dinitrate 20 Mg Tab PO 20 mg TID JAMES Administration Lisinopril 20 mg 03/30/20 09:00 04/03/20 20:45 Lisinopril 10 Mg Tab PO 20 mg BID JAMES Administration Polyethylene Glycol 17 gm 03/30/20 09:00 04/03/20 08:17 Polyethylene Glycol 3350 17 Gm Packet PO Not Given DAILY JAMES Senna/Docusate Sodium 2 tab 03/28/20 10:34 03/30/20 20:52 Senokot S 8.6-50 Mg Tab PO 2 tab BID PRN Administration Constipation Sodium Chloride 10 ml 03/28/20 21:00 04/03/20 20:44 Flush - Normal Saline 10 Ml Syringe IVF 10 ml Q12HR JAMES Administration Sodium Chloride 10 ml 03/28/20 12:45 04/04/20 05:31 Flush - Normal Saline 10 Ml Syringe IVF 10 ml PRN PRN Administration Saline Flush Spironolactone 25 mg 03/30/20 08:00 04/03/20 08:16 Spironolactone 25 Mg Tab PO 25 mg QAM-WM JAMES Administration Tramadol HCl 50 mg 03/28/20 23:56 03/30/20 14:17 Tramadol Hcl 50 Mg Tab PO 50 mg Q4H PRN Administration Pain - Exam General Appearance: NAD, awake alert Eye: PERRL, anicteric sclera ENT: normocephalic atraumatic, no oropharyngeal lesions, moist mucosa Neck: supple, symmetric, no JVD, no thyromegaly, no lymphadenopathy, no carotid bruit Heart: RRR, no murmur, no gallops, no rubs, normal peripheral pulses Respiratory: CTAB, no wheezes, no rales, no ronchi, normal chest expansion, no tachypnea, normal percussion Gastrointestinal: soft, non-tender, non-distended, normal bowel sounds, no palpable masses, no hepatomegaly, no splenomegaly, no bruit Extremities: no cyanosis, no clubbing, no edema Skin: normal turgor, no lesions, no rashes Neurological: normal sensation to touch, no weakness, no focal deficits Musculoskeletal: normal tone, normal strength, no muscle wasting Psychiatric: normal affect, normal behavior, A&O x 3 Hosp A/P - Plan Discharge delayed due to bed placement. Medically ready for discharge. Waiting on rehab bed. Ischemic cardiomyopathy Continue amiodarone, carvedilol Continue isosorbide Chronic systolic heart failure with AICD AICD in place, diuresed successfully with Lasix Electrophysiology consultpatient refused chronic anticoagulation Continue aspirin, statin, Lasix, hydralazine, lisinopril, spironolactone Acute hypoxic respiratory failure requiring BiPAP Resolved, did initially require BiPAP Secondary to pneumonia Patient completing antibiotics No shortness of breath Pneumonia Continuing cefepime and azithromycin IV Resolving No shortness of breath Covid negative Type II NSTEMI Secondary to CHF and pneumonia from demand ischemia Troponins flat No chest pain or ischemic changes on EKG DVT prophylaxis- Lovenox FULL CODE
[2020-04-04] MEDS: Enoxaparin Sodium 40 MG/0.4 ML SYRINGE SC SCH (09:04)
[2020-04-04] MEDS: Spironolactone 25 MG TAB PO SCH (09:04)
[2020-04-04] MEDS: Isosorbide Dinitrate 20 MG TAB PO SCH ×2 (09:04→15:02)
[2020-04-04] MEDS: hydrALAZINE 25 MG TAB PO SCH ×2 (09:04→15:02)
[2020-04-04] MEDS: Cefepime 2 GM in Sodium Chloride 0.9% 100 ML IVPB SCH (09:04)
[2020-04-04] MEDS: Gabapentin 300 MG CAP PO SCH ×2 (09:05→15:01)
[2020-04-04] MEDS: Lisinopril 10 MG TAB PO SCH (09:05)
[2020-04-04] MEDS: Ferrous Sulfate 325 MG TAB PO SCH (09:05)
[2020-04-04] MEDS: Carvedilol 25 MG TAB PO SCH (09:05)
[2020-04-04] MEDS: Aspirin Chewable 81 MG TAB PO SCH (09:06)
[2020-04-04] MEDS: Polyethylene Glycol 3350 17 GM Packet PO SCH (09:06)
[2020-04-04] MEDS: Amiodarone 200 MG TAB PO SCH (09:06)
[2020-04-04] MEDS: Azithromycin 500 MG in Sodium Chloride 0.9% 250 ML 250 ML IVPB SCH (11:47)
[2020-04-04 15:16] VITALS: BP 124/58; TEMP 98.8
--- NOTE | 2020-04-07 05:12 | PQF ---
CLINICAL DOCUMENTATION CLARIFICATION FORM: Dear : Ghazala King Date / Time: 04/07/2020 [id number] Please exercise your independent, professional judgment in responding to the clarification form. Clinical indicators are provided on the bottom of this form for your review Based on the clinical indicators on admit, can you determine if Sepsis was present at the time of admission? Diagnosis: Sepsis Present on Admission (POA): [ ] Yes [ ] No [ ] Unable to determine Physician Signature: Date/Time: For continuity of documentation, please document condition throughout progress notes and discharge summary. Thank You. To be completed by CDI/Coding staff for physician review: Present Clinical Indicators - Signs / Symptoms / Labs Results and Location in Medical Record [X] WBC 11.1, Plt count 182, Neutrophils 82, Band 3, Latic acid 1.5 Laboratory 03/28 [X] Blood culture: No growth in 5 days Microbiology 03/28 [X] Chest CT : Evidence for probable developing left lower lobe and left upper lobe pneumonia or possible aspiration with minimal pleural reaction changes Imaging Dr Dias 03/28 [X] BP 119/52, Pulse 98, Resp 37, Temp 98.6 Vital signs 03/28 [X] SIRS scoring : Pt did meet criteria ED notes p6 03/28 [X] presented with acute onset of SOB with respiratory distress H&P p1 03/28 Dr Santos [X] Acute Respiratory Failure H&P p6 03/28 Dr Santos [X] Aspiration Pneumonia H&P p6 03/28 Dr Santos [X] Pneumonia with Sepsis, improving Consult Dr Dorantes 03/30 Present Risk Factors Results and Location in Medical Record [X] 69 year-old Male H&P p1 03/28 Dr Santos [X] HTN H&P p1 03/28 Dr Santos [X] DM H&P p1 03/28 Dr Santos [X] CHF H&P p3 03/28 Dr Santos [X] Aspiration Pneumonia H&P p6 03/28 Dr Santos [X] Obesity HP 03/28 Present Treatments Results and Location in Medical Record [X] IV Azithromycin 500 mg JUL 03 [X] IV Cefepime 2 gm JUL 03 [X] BiPap Respiratory Panel 03/28 [X] IVF JUL 03 CDS/Sales Representatives Signature: Erika Mcclendon Phone #: [phone] Date/Time: 04/07/2020 0511 This is a permanent part of the Medical Record [facility]
--- NOTE | 2020-04-11 14:38 | EKG ---
Test Reason : Blood Pressure : / mmHG Vent. Rate : 098 BPM Atrial Rate : 098 BPM P-R Int : 136 ms QRS Dur : 188 ms QT Int : 424 ms P-R-T Axes : 016 027 -74 degrees QTc Int : 541 ms Atrial-sensed ventricular-paced rhythm Abnormal ECG Confirmed by ESEQUIEL MAURICE ([id number]), scientific editor BANG ROBISON ([id number]) on 04/11/2020 2:37:47 PM Referred By: Confirmed By:ESEQUIEL MAURICE
== END 2020-04-04 16:25 | DRG 177 ==
LOC: ERS 06:59 → ERHOLD 09:04 → 2SW 22:30 → 2NO 03-31 18:34
PROVIDERS: ADMIT Internal Medicine; ATTEND Internal Medicine
PROC: 5A09357 Assistance with Respiratory Ventilation, Less than 24 Consecutive Hours, Continuous Positive Airway Pressure (ICD-10-PCS; principal; 2020-03-28)
DX: J69.0 Pneumonitis due to inhalation of food and vomit (principal); J96.01 Acute respiratory failure with hypoxia; I21.A1 Myocardial infarction type 2; A41.9 Sepsis, unspecified organism; I50.23 Acute on chronic systolic (congestive) heart failure; I11.0 Hypertensive heart disease with heart failure; Z20.828 Contact with and (suspected) exposure to other viral communicable diseases; E11.9 Type 2 diabetes mellitus without complications; E78.5 Hyperlipidemia, unspecified; K21.9 Gastro-esophageal reflux disease without esophagitis; E66.9 Obesity, unspecified; M54.5 Low back pain; D63.8 Anemia in other chronic diseases classified elsewhere; I25.5 Ischemic cardiomyopathy; G89.4 Chronic pain syndrome; Y95 Nosocomial condition; I08.1 Rheumatic disorders of both mitral and tricuspid valves; I48.0 Paroxysmal atrial fibrillation; N40.0 Benign prostatic hyperplasia without lower urinary tract symptoms; Z68.35 Body mass index [BMI] 35.0-35.9, adult; Z79.82 Long term (current) use of aspirin; Z95.810 Presence of automatic (implantable) cardiac defibrillator; Z79.899 Other long term (current) drug therapy; Z79.4 Long term (current) use of insulin
CPT/HCPCS: 36415; 36416; 36600; 71045; 71275; 80048; 80053; 81001; 82553; 82805; 83605; 83735; 83880; 84443; 84484; 84550; 85025; 85379; 85610; 85730; 87040; 93005; 93306; 94660; 96365; 96366; 96367; 96375; J0456; J0692; J1650; J1940; J2270; J3010; J3490; J7050; Q9967; U0002

== ENCOUNTER 2020-04-29 09:42 | Outpatient (CLI) | payer MEDICARE ==
--- NOTE | 2020-04-29 10:14 | RAD ---
EXAM: XR Lumbar Spine 2 Or 3 View PROVIDED CLINICAL HISTORY: Follow-up surgery. COMPARISON: 11/19/2019 FINDINGS: Interval postoperative changes related to posterior fusion at the L4-5 level with bipedicular screws and posterior rods transfixing this level. Intradiscal prosthesis is seen. Slight grade 1 anterolisthesis of L4 on L5 is present. There are laminectomy defects extending from the L3 to the L 4-5 level. No hardware complication is seen. The vertebral body heights are within normal limits. Scattered osteophytes are again present visualized lower thoracic spine as well as involving the lumb ar spine. Vascular calcifications are again seen in the abdominal aorta. There is an oval-shaped radiopaque den sity seen adjacent to the left L3 intervertebral disc space may be related to very patent density within a loop of bowel possibly related to ingested material and possibly medication. Vascular calcif ications and phleboliths overlie the pelvis. IMPRESSION: 1. Interval postoperative changes of the lumbar spine. 2. Degenerative changes lumbar spine. 3. Radiopaque density overlying left lower quadrant which may represent ingested material within roni l and possibly representing medication.
== END 2020-04-29 09:43 | disposition home or self-care (01) ==
LOC: TBSIIMAG 09:42
PROVIDERS: ATTEND Neurological Surgery
DX: M43.16 Spondylolisthesis, lumbar region (principal); M47.816 Spondylosis without myelopathy or radiculopathy, lumbar region; R19.8 Other specified symptoms and signs involving the digestive system and abdomen; Z98.890 Other specified postprocedural states
CPT/HCPCS: 72100

== ENCOUNTER 2021-04-28 09:27 | Outpatient (CLI) | payer MEDICARE | END 2021-04-28 09:28 | disposition home or self-care (01) | LOC: RAD 09:27 | PROVIDERS: ATTEND Neurological Surgery | DX: M47.26 Other spondylosis with radiculopathy, lumbar region (principal); Z98.890 Other specified postprocedural states | CPT/HCPCS: 72100 ==